=== PATIENT | female | born 1990 | race Caucasian/White ===

== ENCOUNTER 2016-05-25 01:41 | Emergency (ER) | payer OTHER ==
[2016-05-25] MEDS ORDERED: ORPHENADRINE 30 MG/ML 2 ML VIAL IM STA (02:19)
[2016-05-25] MEDS ORDERED: KETOROLAC 60 MG/2 ML VIAL IM STA (02:20)
[2016-05-25] MEDS ORDERED: methylPREDNISolone SOD SUCCI 125 MG/2 ML VIAL IM ONE (02:20)
--- NOTE | 2016-05-25 03:12 | XR ---
EXAMINATION TYPE: XR lumbar spine 2 or 3V DATE OF EXAM: 05/25/2016 2:49 AM CLINICAL HISTORY: Lower back pain no injury no previous TECHNIQUE: Frontal, lateral images of the lumbar spine are obtained. COMPARISON: None FINDINGS: There is increased lumbar lordosis. The alignment of vertebral bodies and body heights are grossly normal. There is narrowing of disc spa ce between L5 on S1 vertebrae with possible mild degenerative disc disease changes. The overlying sof t tissue appears unremarkable. No definite acute fracture is noted in the lumbar spine. IMPRESSION: 1. No acute fracture in the lumbar spine. 2. Possible mild degenerative disc disease at L5-S1.
--- NOTE | 2016-05-25 03:24 | ED ---
Back Pain HPI - General Chief Complaint: Back Pain/Injury Stated Complaint: Back Pain Time Seen by Provider: 05/25/16 01:44 Source: patient, EMS, RN notes reviewed Limitations: no limitations - History of Present Illness Initial Comments: Patient is a 25 year old female with chief complaint of lower back pain radiating to both legs for approximately 2 days. Patient arrived via EMS. Patient reports that she has had this time of pain before but not this bad. Patient report myrna is positional and worse with flexion. She denies fever, chills, nausea, vomiting, chest pain, shortness fo breath, headache. She denies saddle anesthesia. - Related Data Home Medications Medication Instructions Recorded Confirmed Pnv with Ca,No.72/Iron/FA [Pnv 1 tab PO DAILY 11/03/13 01/15/14 Plus Multivit Tab] Amoxicillin [Amoxicillin] 500 mg PO Q4HR 12/23/13 01/15/14 Loratadine [Loratadine] 10 mg PO DAILY 12/23/13 01/15/14 Previous Rx's Medication Instructions Recorded Acetaminophen-Codeine 300-30mg 1 tab PO Q4H PRN #30 tablet 01/18/14 [Tylenol w/codeine #3] FLUoxetine HCL [PROzac] 20 mg PO DAILY #7 cap 01/18/14 FLUoxetine HCL [PROzac] 40 mg PO DAILY #30 cap 01/18/14 Ibuprofen [Motrin] 600 mg PO Q6HR PRN #30 tab 01/18/14 Cyclobenzaprine [Flexeril] 10 mg PO TID #15 tab 05/25/16 Dexamethasone 0.75 mg PO DAILY #12 tab 05/25/16 Allergies Allergy/AdvReac Type Severity Reaction Status Date / Time No Known Allergies Allergy Verified 01/15/14 12:12 Review of Systems ROS Statement: Those systems with pertinent positive or pertinent negative responses have been documented in the HPI. ROS Other: All systems not noted in ROS Statement are negative. Past Medical History Past Medical History: No Reported History Additional Past Medical History / Comment(s): . alcohol syndrome History of Any Multi-Drug Resistant Organisms: None Reported Past Surgical History: Orthopedic Surgery Additional Past Surgical History / Comment(s): shoulder Past Anesthesia/Blood Transfusion Reactions: No Reported Reaction Past Psychological History: Bipolar, Depression Smoking Status: Former smoker Past Alcohol Use History: None Reported Past Drug Use History: None Reported General Exam - General Exam Comments Initial Comments: Patient is a 25 healthy appearing female. She does not appear to be in any acute distress. Limitations: no limitations General appearance: alert, in no apparent distress Head exam: Present: atraumatic, normocephalic, normal inspection Eye exam: Present: normal appearance, PERRL, EOMI. Absent: scleral icterus, conjunctival injection, periorbital swelling ENT exam: Present: normal exam, mucous membranes moist Neck exam: Present: normal inspection. Absent: tenderness, meningismus, lymphadenopathy Respiratory exam: Present: normal lung sounds bilaterally. Absent: respiratory distress, wheezes, rales, rhonchi, stridor Cardiovascular Exam: Present: regular rate, normal rhythm, normal heart sounds. Absent: systolic murmur, diastolic murmur, rubs, gallop, clicks GI/Abdominal exam: Present: soft, normal bowel sounds. Absent: distended, tenderness, guarding, rebound, rigid Extremities exam: Present: normal inspection, full ROM, normal capillary refill. Absent: tenderness, pedal edema, joint swelling, calf tenderness Back exam: Present: normal inspection, paraspinal tenderness (bilateral lumbar tenderness. ). Absent: full ROM (patient reports limited flexion and extension due to pain. ), CVA tenderness (L), muscle spasm Neurological exam: Present: alert, oriented X3, CN II-XII intact Psychiatric exam: Present: normal affect, normal mood Skin exam: Present: warm, dry, intact, normal color. Absent: rash Course Vital Signs 05/25/16 05/25/16 05/25/16 01:48 02:38 03:58 Temperature 97.0 F L 98.1 F 98 F Pulse Rate 75 82 88 Respiratory 18 20 18 Rate Blood Pressure 120/68 128/72 133/79 O2 Sat by Pulse 98 98 98 Oximetry Medical Decision Making - Medical Decision Making Patient is a 25 year old with bilateral back pain radiating to her legs. she denies any falls or trauma to cause pain. She states that pain is positional and worse with flexion. She denies fevers, chills, or urinary retention. Patient was able to ambulate while in the and had 2 episodes of urination. Patient appears to have disc narrowing of L5-S1 vertebrae. Patient given Norflex, toradol, and solumedrol for pain. Patient will be discharged with steroid and flexeril. Patient reports she feels anxious and is trying to get comfortable to sleep, and patient given 1 po ativan to help with sleep and muscle relaxation. Patient given ortho referral. Patient understands treatment plan and will comply. - Lab Data Lab Results 05/25/16 Range/Units 01:50 Urine HCG, Qual Not Detected (Not Detectd) - Radiology Data Radiology results: report reviewed Mild disc degenerative disease and L5 through S1. No evidence of acute fractures or dislocations. Disposition Clinical Impression: Sciatica Disposition: HOME SELF-CARE Condition: Good Instructions: Acute Low Back Pain (ED), Sciatica (ED) Additional Instructions: Patient started take anti-inflammatory medications as prescribed. Patient started apply warm heat over the back. Follow-up with primary care physician or migration specialist if symptoms continue to persist. Prescriptions: Cyclobenzaprine [Flexeril] 10 mg PO TID #15 tab Dexamethasone 0.75 mg PO DAILY #12 tab Referrals: Kellen Winters MD [Primary Care Provider] - 1-2 days Time of Disposition: 03:22
[2016-05-25] MEDS ORDERED: LORazepam 1 MG TAB PO STA (03:47)
[2016-05-25 04:01] VITALS: BP 133/79; PULSE 88; RESP 18; TEMP 98
== END 2016-05-25 04:01 | disposition home or self-care (01) ==
LOC: EC 01:41
DX: M54.42 Lumbago with sciatica, left side (principal); M54.41 Lumbago with sciatica, right side; M51.37 Other intervertebral disc degeneration, lumbosacral region; Z87.891 Personal history of nicotine dependence; Z79.899 Other long term (current) drug therapy
CPT/HCPCS: 96372 ×4; 99284 ×2; 81025; 72100; J2360; J2930; J1885

== ENCOUNTER 2016-08-11 20:18 | Inpatient (IN) | payer OTHER ==
[2016-08-11] MEDS ORDERED: MORPHINE SULFATE 4 MG/ML SYRINGE IM STA (21:34)
[2016-08-11] MEDS ORDERED: MORPHINE SULFATE 4 MG/ML SYRINGE IVP STA (22:26)
[2016-08-11] MEDS ORDERED: NALOXONE 0.4 MG/ML 1 ML VIAL IV PRN (22:26)
--- NOTE | 2016-08-11 22:31 | ED ---
General Adult HPI - General Chief complaint: Abdominal Pain Stated complaint: Poss Hernia Source: patient Mode of arrival: ambulatory Limitations: no limitations - History of Present Illness Initial comments: 25-year-old female presenting for ventral/umbilical hernia that is nonreducible. She states that she has had the hernia for some months and was first diagnosed with a . She states since then the hernia will pop out and she is able to reduce it herself however today it remains nonreducible and is painful. She states she tried for about 2 hours prior to coming to the ED without success. She's been having some looser stools for the last couple weeks but states she is still having bowel movements and passing flatus. There is no discoloration of the skin overlying the area of hernia. She denies any other associated symptoms. - Related Data Home Medications Medication Instructions Recorded Confirmed Pnv with Ca,No.72/Iron/FA [Pnv 1 tab PO DAILY 11/03/13 01/15/14 Plus Multivit Tab] Amoxicillin [Amoxicillin] 500 mg PO Q4HR 12/23/13 01/15/14 Loratadine [Loratadine] 10 mg PO DAILY 12/23/13 01/15/14 Previous Rx's Medication Instructions Recorded Acetaminophen-Codeine 300-30mg 1 tab PO Q4H PRN #30 tablet 01/18/14 [Tylenol w/codeine #3] FLUoxetine HCL [PROzac] 20 mg PO DAILY #7 cap 01/18/14 FLUoxetine HCL [PROzac] 40 mg PO DAILY #30 cap 01/18/14 Ibuprofen [Motrin] 600 mg PO Q6HR PRN #30 tab 01/18/14 Cyclobenzaprine [Flexeril] 10 mg PO TID #15 tab 05/25/16 Dexamethasone 0.75 mg PO DAILY #12 tab 05/25/16 Allergies Allergy/AdvReac Type Severity Reaction Status Date / Time No Known Allergies Allergy Verified 08/11/16 20:33 Review of Systems ROS Statement: Those systems with pertinent positive or pertinent negative responses have been documented in the HPI. ROS Other: All systems not noted in ROS Statement are negative. Constitutional: Denies: fever, chills Eyes: Denies: eye pain, eye discharge ENT: Denies: ear pain, throat pain Respiratory: Denies: cough, dyspnea Cardiovascular: Denies: chest pain, palpitations Endocrine: Denies: fatigue, polydipsia Gastrointestinal: Reports: abdominal pain, nausea. Denies: vomiting Genitourinary: Denies: urgency, dysuria Musculoskeletal: Denies: back pain, arthralgia Skin: Denies: rash, lesions Neurological: Denies: headache, weakness Psychiatric: Denies: anxiety, depression Hematological/Lymphatic: Denies: easy bleeding, easy bruising Past Medical History Past Medical History: No Reported History Additional Past Medical History / Comment(s): . alcohol syndrome History of Any Multi-Drug Resistant Organisms: None Reported Past Surgical History: Orthopedic Surgery Additional Past Surgical History / Comment(s): shoulder Past Anesthesia/Blood Transfusion Reactions: No Reported Reaction Past Psychological History: Bipolar, Depression Smoking Status: Former smoker Past Alcohol Use History: None Reported Past Drug Use History: None Reported General Exam Limitations: no limitations General appearance: alert, in no apparent distress Head exam: Present: atraumatic, normocephalic, normal inspection Eye exam: Present: normal appearance, PERRL, EOMI. Absent: scleral icterus, conjunctival injection, periorbital swelling ENT exam: Present: normal exam, mucous membranes moist Neck exam: Present: normal inspection. Absent: tenderness, meningismus, lymphadenopathy Respiratory exam: Present: normal lung sounds bilaterally. Absent: respiratory distress, wheezes, rales, rhonchi, stridor Cardiovascular Exam: Present: regular rate, normal rhythm, normal heart sounds. Absent: systolic murmur, diastolic murmur, rubs, gallop, clicks GI/Abdominal exam: Present: soft, tenderness, normal bowel sounds, hernia ( Round and firm ventral/umbilical hernia, nonreducible, and tender to palpation.) . Absent: distended, guarding, rebound, rigid Rectal exam: Present: deferred Extremities exam: Present: normal inspection, full ROM, normal capillary refill. Absent: tenderness, pedal edema, joint swelling, calf tenderness Back exam: Present: normal inspection Neurological exam: Present: alert, oriented X3, CN II-XII intact Psychiatric exam: Present: normal affect, normal mood Skin exam: Present: warm, dry, intact, normal color. Absent: rash Course Vital Signs 08/11/16 08/11/16 20:31 23:14 Temperature 99.2 F 97.4 F L Pulse Rate 90 Pulse Rate [ 84 Apical] Respiratory 20 12 Rate Blood Pressure 128/77 Blood Pressure 112/82 [Left Arm] O2 Sat by Pulse 98 96 Oximetry Medical Decision Making - Medical Decision Making 25-year-old female with a history of ventral/umbilical hernia that started months ago presenting for evaluation of nonreducible hernia. She states she attempted to reduce it for the last 2 hours and has been unsuccessful. Upon presentation the hernia is visible from the bedside without any overlying erythema or discoloration. Multiple attempts at the bedside made to reduce the hernia were unsuccessful. Patient was placed in Trendelenburg and given pain control and yet the hernia was still unable to be reduced. Dr. Bourgeois was updated on the status of the patient and agreed with plan to admit and requested the pt be made NPO for possible intervention in the morning. Labs revealed no significant abnormalities and acute abdominal series showed nonspecific, nonobstructing bowel gas pattern. The patient was informed of this decision to admit and agreed with this plan of care. Pain was controlled. Admission order placed in bed request submitted. - Lab Data Result diagrams: 08/11/16 22:40 08/11/16 22:40 Disposition Clinical Impression: Ventral hernia Disposition: ADMITTED IP TO THIS [facility] Decision to Admit Reason: Admit from EC Decision Date: 08/11/16 Decision Time: 22:31
[2016-08-11] MEDS: SODIUM CHLORIDE 0.9% 1,000 ML IV SCH (22:45)
[2016-08-11 22:55] LABS: Basophils % (A) 0 %; CH 29.3; CHCM 33.7; Eosinophils # (A) 0.3 k/uL (0-0.7); Eosinophils % (A) 3 %; HCT 43.4 % (34.0-46.0); HDW 3.03; HGB 14.6 gm/dL (11.4-16.0); Luc # (Auto) 0.17; Luc % (Auto) 2; Lymphocytes # (A) 2.1 k/uL (1.0-4.8); Lymphocytes % (A) 19 %; MCH 29.3 pg (25.0-35.0); MCHC 33.6 g/dL (31.0-37.0); MCV 87.3 fL (80.0-100.0); Mean Platelet Volume 6.4; Monocytes # (A) 0.4 k/uL (0-1.0); Monocytes % (A) 4 %; Neutrophils # (A) 7.7 k/uL (1.3-7.7); Neutrophils % (A) 72 %; RBC 4.97 m/uL (3.80-5.40); RDW 14.7 % (11.5-15.5); WBC 10.7 k/uL (3.8-10.6); WBC (Perox) 10.54
--- NOTE | 2016-08-11 23:00 | XR ---
EXAMINATION TYPE: XR abdomen acute w cxr DATE OF EXAM: 08/11/2016 10:52 PM CLINICAL HISTORY: Umbilical hernia per patient. Pain not further specified per order. TECHNIQUE: Single frontal view of chest is obtained. Supine and upright views of the abdomen are acq uired. COMPARISON: None. FINDINGS: The lungs are grossly clear without pleural effusion or pneumothorax. Cardiac silhouette size appears within normal limits. Osseous structures are intact. Gas is noted in nondistended stomach and small bowel loops. Gas and fecal material is seen in nondis tended colon. No pneumoperitoneum, visceromegaly, or suspicious calcification is identified. The o sseous structures are intact. IMPRESSION: 1. No acute pulmonary process. 2. Overall nonspecific but likely nonobstructive bowel gas pattern.
[2016-08-11 23:02] LABS: Anion Gap 10 mmol/L; Blood Urea Nitrogen 14 mg/dL (7-17); Calcium 9.3 mg/dL (8.4-10.2); Carbon Dioxide 26 mmol/L (22-30); Chloride 105 mmol/L (98-107); Glucose 84 mg/dL (74-99); HCG,Qualitative Serum Not Detected; Non-African American GFR(MDRD) >60 (>60 ml/min/1.73 sqM); Potassium 4.4 mmol/L (3.5-5.1); Sodium 141 mmol/L (137-145)
[2016-08-11 23:07] LABS: Partial Thromboplastin Time 23.5 sec (22.0-30.0)
[2016-08-11 23:53] VITALS: BMI 29.5
[2016-08-12] MEDS: MORPHINE SULFATE 4 MG/ML SYRINGE IV PRN ×3 (02:11→11:24)
[2016-08-12] MEDS: SODIUM CHLORIDE 0.9% 1,000 ML IV SCH ×2 (07:14→18:18)
[2016-08-12 07:26] LABS: Basophils % (A) 1 %; CH 29.5; Eosinophils # (A) 0.3 k/uL (0-0.7); Eosinophils % (A) 3 %; HDW 3.02; HGB 14.3 gm/dL (11.4-16.0); Luc % (Auto) 1; Lymphocytes # (A) 1.9 k/uL (1.0-4.8); Lymphocytes % (A) 25 %; MCH 28.6 pg (25.0-35.0); MCHC 31.8 g/dL (31.0-37.0); Mean Platelet Volume 6.4; Monocytes # (A) 0.4 k/uL (0-1.0); Monocytes % (A) 5 %; Neutrophils # (A) 5.1 k/uL (1.3-7.7); Neutrophils % (A) 66 %; RDW 14.9 % (11.5-15.5); WBC 7.8 k/uL (3.8-10.6); WBC (Perox) 7.87
[2016-08-12 07:46] LABS: Anion Gap 8 mmol/L; Blood Urea Nitrogen 11 mg/dL (7-17); Calcium 8.7 mg/dL (8.4-10.2); Carbon Dioxide 26 mmol/L (22-30); Chloride 108 mmol/L (98-107); Glucose 79 mg/dL (74-99); Non-African American GFR(MDRD) >60 (>60 ml/min/1.73 sqM); Potassium 4.5 mmol/L (3.5-5.1); Sodium 142 mmol/L (137-145)
[2016-08-12] MEDS ORDERED: HEPARIN SODIUM,PORCINE 5,000 UNIT/ML 1 ML VIAL SQ ONE (10:20)
--- NOTE | 2016-08-12 10:29 | P.GSHP ---
History of Present Illness H&P Date: 08/12/16 Chief Complaint: Incarcerated umbilical hernia 25 yrs old female presents with painful and irreducible hernia at the umbilicus. Known umbilical hernia since 2 years ago. Patient noticed that hernia is no longer reducible and is now having more pain and discomfort. No nausea or vomiting. She is passing flatus but no bowel movements. No fever, chills or rigors - Review of Systems Comment: Constitutional: Denies fever, weight loss or loss of appetite HEENT: No difficulty in vision or hearing. Denies dysphagia. Cardiovascular: Denies chest pain, palpitations, dizziness, shortness of breath. Respiratory: No cough or SOB Gastrointestinal: No recent change in bowel habits Integumentary: No skin changes Genitourinary: No urinary incontinence, hematuria or dysuria Neurologic: No seizures, denies weakness in upper or lower extremities Past Medical History Past Medical History: No Reported History Additional Past Medical History / Comment(s): . alcohol syndrome History of Any Multi-Drug Resistant Organisms: None Reported Past Surgical History: Orthopedic Surgery Additional Past Surgical History / Comment(s): shoulder Past Anesthesia/Blood Transfusion Reactions: No Reported Reaction Past Psychological History: Bipolar, Depression Smoking Status: Former smoker Past Alcohol Use History: None Reported Past Drug Use History: None Reported Medications and Allergies Home Medications Medication Instructions Recorded Confirmed Type Pnv with Ca,No.72/Iron/FA [Pnv 1 tab PO DAILY 11/03/13 01/15/14 History Plus Multivit Tab] Amoxicillin [Amoxicillin] 500 mg PO Q4HR 12/23/13 01/15/14 History Loratadine [Loratadine] 10 mg PO DAILY 12/23/13 01/15/14 History Allergies Allergy/AdvReac Type Severity Reaction Status Date / Time No Known Allergies Allergy Verified 08/11/16 20:33 Surgical - Exam Vital Signs Temp Pulse Resp BP Pulse Ox 99.2 F 90 20 128/77 98 08/11/16 20:31 08/11/16 20:31 08/11/16 20:31 08/11/16 20:31 08/11/16 20:31 General: Patient is alert and oriented to time, place and person and cooperative with exam. HEENT: No pallor, no icterus Chest: Bilateral equal breath sounds present. No wheezes, no crackles. Cardiovascular: Regular rate and rhythm. Abdomen: 5 x 5 cm umbilical hernia, incarcerated, irreducible with some overlying skin redness Neurologic: Cranial nerves II-XII intact. Strength upper and lower extremities 5/5. No focal neurologic deficits. Gait is normal. Psychiatric: No anxiety or psychosis. No suicidal thoughts. Results - Labs 08/12/16 06:09 08/12/16 06:09 Abnormal Lab Results - Last 24 Hours (Table) 08/11/16 08/12/16 Range/Units 22:40 06:09 WBC 10.7 H (3.8-10.6) k/uL Chloride 108 H (98-107) mmol/L Diabetes panel 08/11/16 08/12/16 Range/Units 22:40 06:09 Sodium 141 142 (137-145) mmol/L Potassium 4.4 4.5 (3.5-5.1) mmol/L Chloride 105 108 H (98-107) mmol/L Carbon Dioxide 26 26 (22-30) mmol/L BUN 14 11 (7-17) mg/dL Creatinine 0.80 0.83 (0.52-1.04) mg/dL Glucose 84 79 (74-99) mg/dL Calcium 9.3 8.7 (8.4-10.2) mg/dL Calcium panel 08/11/16 08/12/16 Range/Units 22:40 06:09 Calcium 9.3 8.7 (8.4-10.2) mg/dL Pituitary panel 08/11/16 08/12/16 Range/Units 22:40 06:09 Sodium 141 142 (137-145) mmol/L Potassium 4.4 4.5 (3.5-5.1) mmol/L Chloride 105 108 H (98-107) mmol/L Carbon Dioxide 26 26 (22-30) mmol/L BUN 14 11 (7-17) mg/dL Creatinine 0.80 0.83 (0.52-1.04) mg/dL Glucose 84 79 (74-99) mg/dL Calcium 9.3 8.7 (8.4-10.2) mg/dL Adrenal panel 08/11/16 08/12/16 Range/Units 22:40 06:09 Sodium 141 142 (137-145) mmol/L Potassium 4.4 4.5 (3.5-5.1) mmol/L Chloride 105 108 H (98-107) mmol/L Carbon Dioxide 26 26 (22-30) mmol/L BUN 14 11 (7-17) mg/dL Creatinine 0.80 0.83 (0.52-1.04) mg/dL Glucose 84 79 (74-99) mg/dL Calcium 9.3 8.7 (8.4-10.2) mg/dL Assessment and Plan (1) Incarcerated umbilical hernia Status: Acute Plan: 1. Informed consent obtained and patient elected to undergo laparoscopic umbilical hernia repair with possible mesh possible open. In case of necrotic bowel or omentum, small bowel resection will also be performed with primary anastomosis and primary hernia repair without mesh. 2. The risks, benefits and potential complications including bleeding, infection, inadvertent bowel injury were explained and patient elected to undergo the procedure 3. Ancef 2 g IV piggyback times one 4. Heparin 5000 units subcu tissues injection 1 6. Bilateral SCDs
[2016-08-12] MEDS ORDERED: ONDANSETRON 4 MG/2 ML VIAL IVP PRN ×2 (10:30→15:23)
[2016-08-12] MEDS ORDERED: ceFAZolin 2 GM in SODIUM CHLORIDE 0.9% 100 ML IVPB ONE (11:00)
[2016-08-12] MEDS ORDERED: IV FLUID CONTINUATION 1,000 ML IV ONE ×3 (12:39→13:25)
[2016-08-12] MEDS ORDERED: ONDANSETRON 4 MG/2 ML VIAL IVP ONE ×2 (12:51)
[2016-08-12] MEDS ORDERED: MIDAZOLAM 2 MG/2 ML VIAL ONE (13:29)
[2016-08-12] MEDS ORDERED: SUCCINYLCHOLINE CHLORIDE 100 MG/5 ML SYR IV ONE (13:29)
[2016-08-12] MEDS ORDERED: HYDROmorphone (PF) 1 MG/ML ONE (13:29)
[2016-08-12] MEDS ORDERED: ceFAZolin 1,000 MG VIAL ONE (13:29)
[2016-08-12] MEDS ORDERED: GLYCOPYRROLATE 0.2 MG/ML 2 ML VIAL ONE (13:29)
[2016-08-12] MEDS ORDERED: PROPOFOL 10 MG/ML 20 ML VIAL IV ONE (13:29)
[2016-08-12] MEDS ORDERED: NEOSTIGMINE 1 MG/ML 10 ML VIAL ONE (13:29)
[2016-08-12] MEDS ORDERED: fentaNYL (PF) 50 MCG/ML 2 ML AMP ONE (13:29)
[2016-08-12] MEDS ORDERED: LIDOCAINE 1% INJ 10MG/ML (20 ML MDV) ONE (13:29)
[2016-08-12] MEDS ORDERED: ROCURONIUM BROMIDE 10 MG/ML 10 ML VIAL IV ONE (13:29)
[2016-08-12] MEDS ORDERED: DEXAMETHASONE SOD PHOS (MDV) 100 MG/10 ML VIAL ONE (13:29)
[2016-08-12] MEDS ORDERED: SODIUM CHLORIDE 0.9% 100 ML with ceFAZolin 2,000 MG IV ONE ×2 (13:43)
[2016-08-12] MEDS ORDERED: BUPIVACAIN-EPI 0.25%-1:200,000 30 ML VIAL SQ ONE ×2 (13:49)
[2016-08-12] MEDS ORDERED: LACTATED RINGERS 1,000 ML IV ONE (15:15)
[2016-08-12] MEDS: HYDROmorphone 1 MG/ML 1 ML SYRINGE IVP ONE ×2 (15:31→15:44)
[2016-08-12] MEDS: HEPARIN SODIUM,PORCINE 5,000 UNIT/ML 1 ML VIAL SQ SCH ×2 (17:22→23:49)
[2016-08-12] MEDS: HYDROmorphone 1 MG/ML 1 ML SYRINGE IVP PRN (18:16)
[2016-08-13] MEDS: HYDROmorphone 1 MG/ML 1 ML SYRINGE IVP PRN (00:11)
[2016-08-13 01:25] VITALS: RESP 16
[2016-08-13] MEDS: SODIUM CHLORIDE 0.9% 1,000 ML IV SCH ×2 (07:36→08:28)
[2016-08-13] MEDS: HEPARIN SODIUM,PORCINE 5,000 UNIT/ML 1 ML VIAL SQ SCH (07:37)
[2016-08-13 08:26] VITALS: BP 120/78; PULSE 66; TEMP 99.3
[2016-08-13] MEDS ORDERED: PANTOPRAZOLE 40 MG/10 ML VIAL IV SCH (09:00)
[2016-08-13] MEDS ORDERED: PANTOPRAZOLE 40 MG/10 ML VIAL IVP SCH (09:00)
[2016-08-13] MEDS: HYDROcodone/APAP 5-325MG 1 EACH TAB PO PRN ×2 (10:24→14:28)
--- NOTE | 2016-08-13 14:21 | P.DS ---
Providers Date of admission: 08/11/16 22:26 Expected date of discharge: 08/13/16 Attending physician: Radha Che Primary care physician: Vianey Foreman [facility] Course: 5 yrs old female presents with painful and irreducible hernia at the umbilicus. Known umbilical hernia since 2 years ago. Patient noticed that hernia is no longer reducible and is now having more pain and discomfort. No nausea or vomiting. She is passing flatus but no bowel movements. No fever, chills or rigors. Patient elected to proceed with a upper scopic umbilical hernia repair for incarcerated umbilical hernia. Postprocedure there were no postop events. Patient was felt to be appropriate to be discharged on August 13 - Impression discharge diagnosis Present on admission Incarcerated umbilical hernia Postop laparoscopic umbilical hernia repair done on the 13 August Known umbilical hernia Present on admission pain a reducible hernia at the umbilicus suspect due to incarcerated umbilical hernia Obesity BMI 30 The above dictated assessment and findings were discussed with dr yane Paz and the plan of care have been dictated as directed. Flor Rios nurse practitioner acting as a scribe for dr che Plan - Discharge Summary New Discharge Prescriptions: Docusate [Colace] 100 mg PO DAILY #30 capsule HYDROcodone/APAP 5-325MG [Vaughn 5-325] 1 each PO Q4HR PRN #20 tab PRN Reason: Pain Discharge Medication List Levonorgestrel-Ethin Estradiol [Falmina-28 Tablet] 1 tab PO DAILY 08/12/16 [ History] Docusate [Colace] 100 mg PO DAILY #30 capsule 08/13/16 [Rx] HYDROcodone/APAP 5-325MG [Vaughn 5-325] 1 each PO Q4HR PRN #20 tab 08/13/16 [Rx] Follow up Appointment(s)/Referral(s): Kellen Winters MD [Primary Care Provider] - 1-2 days Radha Che MD [STAFF PHYSICIAN] - 1 Week Activity/Diet/Wound Care/Special Instructions: No heavy lifting greater than 10 pounds May return to work after seen by surgical service in one week [id number] Colace as needed Discharge Disposition: HOME SELF-CARE
--- NOTE | 2016-09-10 18:35 | P.OP ---
Date of Procedure: 08/12/16 Preoperative Diagnosis: Incarcerated umbilical hernia Postoperative Diagnosis: Incarcerated umbilical hernia Procedure(s) Performed: Laparoscopic umbilical henia repair with mesh Implants: BARD Ventralight ST mesh Anesthesia: THU local Surgeon: Radha Bourgeois Pathology: none sent Condition: stable Disposition: PACU Indications for Procedure: 25 yrs old female presents with painful incarcerated umbilical hernia. Informed consent obtained and patient elected to undergo lap possible open umbilical hernia repair with mesh. Operative Findings: Incarcerated umbilical hernia containing omentum Description of Procedure: The patient was brought to the operating room and placed in supine position with both arms out. General anesthesia with endotracheal intubation was performed as per anesthesia team. The right arm was tucked against the body and a footboard was applied. Chlorhexidine was used to prep the skin followed by application of sterile drapes and Ioban dressing. A timeout was performed to verify correct patient and correct procedure. Patient was confirmed to receive perioperative IV antibiotics , bilateral SCDs and 5000 units of subcutaneous heparin for VTE prophylaxis. A 5 mm skin incision was made along the left midaxillary line and a Veress needle was inserted to establish the pneumoperitoneum to a pressure of 15 mm of Hg. Two additional 5 mm trocars were placed on the left mid and lower quadrants respectively. A 10 mm trocar was placed in the right upper quadrant. The hernia defect contained preperitoneal fat and omentum which were reduced using gentle traction and countertraction method. The hernia sac and is contents were reduced and divided using laparoscopic Ligasure device. The falciform ligament was divided close to the anterior abdominal wall to create a landing zone for the mesh. At 11.[address] mesh was tagged in the center using a prolene stitich and was rolled and introduced to the abdominal cavity via the 10 mm trocar. The hernia defect was closed primarily with four transfascial sutures of #1 Neurolon using a Van Joyce device. The Van Joyce device was inserted through the middle of the hernia defect and stay suture was grasped to elevate the mesh against the anterior abdominal wall. Circumferential securestraps were applied to secure the mesh against the anterior abdominal wall. Additional row of secure straps were fired to appose the mesh against the anterior abdominal wall without any folds or kinks. All trocar sites were examined. No evidence of bleeding. The 10 mm trocar site was closed using two transfascial sutures of 0 Vicryl which were placed using a Van Joyce device. The pneumoperitoneum was evacuated and all the skin incisions were closed using 4-0 Monocryl followed by Dermabond skin glue. Telfa and Tegaderm dressings were applied. The sponge, instrument and needle count were correct x2. Abdominal binder was applied. The patient was extubated and taken to post anesthesia care unit in stable condition.
== END 2016-08-13 15:43 | disposition home or self-care (01) | DRG 355 ==
LOC: EC 20:18 → 3SUR 22:26
PROVIDERS: ADMIT Surgery; ATTEND Surgery
PROC: 0WUF4JZ Supplement Abdominal Wall with Synthetic Substitute, Percutaneous Endoscopic Approach (ICD-10-PCS; principal; 2016-08-12 13:00)
DX: K42.0 Umbilical hernia with obstruction, without gangrene (principal); F32.9 Major depressive disorder, single episode, unspecified; E66.9 Obesity, unspecified; Z68.30 Body mass index [BMI] 30.0-30.9, adult; Z87.891 Personal history of nicotine dependence; Z79.899 Other long term (current) drug therapy
CPT/HCPCS: 74022; 80048; 83605; 84703; 85025; 85610; 85730; 96372; 96374; 99285

== ENCOUNTER 2017-05-21 00:47 | Emergency (ER) | payer OTHER ==
[2017-05-21 00:54] VITALS: BP 112/71; PULSE 73; RESP 16; TEMP 96.9
--- NOTE | 2017-05-21 01:11 | ED ---
Back Pain HPI - General Chief Complaint: Back Pain/Injury Stated Complaint: Back Pain Time Seen by Provider: 05/21/17 00:57 Source: patient, RN notes reviewed Mode of arrival: ambulatory Limitations: no limitations - History of Present Illness Initial Comments: This is a 26 year-old female presents emergency Department chief complaint of back pain. Patient states she fell down her stairs a couple days ago onto her back. Patient states there is no head injury no LOC. She states she's been having some worsening low back pain. She does have a history of some low back issues in which she's been told she has degenerative disc between L5 and S1. Patient denies any bowel incontinence or bladder retention denies any abdominal pain no dysuria no hematuria states that she is not sexually active no chance . Patient denies any dysuria no hematuria no change in bowel habits. She does state the pain is worse with movement and better at rest had no alleviation with ibuprofen. - Related Data Home Medications Medication Instructions Recorded Confirmed Levonorgestrel-Ethin Estradiol 1 tab PO DAILY 08/12/16 08/12/16 [Falmina-28 Tablet] Previous Rx's Medication Instructions Recorded Docusate [Colace] 100 mg PO DAILY #30 capsule 08/13/16 HYDROcodone/APAP 5-325MG [[place] 1 each PO Q4HR PRN #20 tab 08/13/16 5-325] Cyclobenzaprine [Flexeril] 5 mg PO TID PRN #15 tablet 05/21/17 Hydrocodone/Acetaminophen [[place] 1 tab PO Q6HR PRN #20 tab 05/21/17 5-325] predniSONE 50 mg PO DAILY #5 tab 05/21/17 Allergies Allergy/AdvReac Type Severity Reaction Status Date / Time No Known Allergies Allergy Verified 08/12/16 11:45 Review of Systems ROS Statement: Those systems with pertinent positive or pertinent negative responses have been documented in the HPI. ROS Other: All systems not noted in ROS Statement are negative. Past Medical History Past Medical History: No Reported History Additional Past Medical History / Comment(s): alcohol syndrome History of Any Multi-Drug Resistant Organisms: None Reported Past Surgical History: Orthopedic Surgery Additional Past Surgical History / Comment(s): shoulder,hernia repair 08/2016 Past Anesthesia/Blood Transfusion Reactions: No Reported Reaction Past Psychological History: Anxiety, Bipolar, Depression Smoking Status: Current every day smoker Past Alcohol Use History: None Reported Past Drug Use History: None Reported General Exam Limitations: no limitations General appearance: alert, in no apparent distress Head exam: Present: atraumatic, normocephalic, normal inspection Neck exam: Present: normal inspection. Absent: tenderness, meningismus, lymphadenopathy Respiratory exam: Present: normal lung sounds bilaterally. Absent: respiratory distress, wheezes, rales, rhonchi, stridor Cardiovascular Exam: Present: regular rate, normal rhythm, normal heart sounds. Absent: systolic murmur, diastolic murmur, rubs, gallop, clicks GI/Abdominal exam: Present: soft, normal bowel sounds. Absent: distended, tenderness, guarding, rebound, rigid Back exam: Present: normal inspection, full ROM, tenderness (Mild tenderness lower lumbar region), paraspinal tenderness, vertebral tenderness (L4-L5) Neurological exam: Present: alert, oriented X3, CN II-XII intact, reflexes normal. Absent: motor sensory deficit Skin exam: Present: warm, dry, intact, normal color. Absent: rash Course Vital Signs 05/21/17 00:49 Temperature 96.9 F L Pulse Rate 73 Respiratory 16 Rate Blood Pressure 112/71 O2 Sat by Pulse 98 Oximetry - Reevaluation(s) Reevaluation #1: 05/21/17 01:11 Patient states that she is not declined test Medical Decision Making - Medical Decision Making 26-year-old female presented from for fall back pain. Patient x-rays reviewed no acute fracture. Patient will be given pain medication muscle relaxer and steroids. Patient called PCP for recheck return parameters were discussed. Disposition Clinical Impression: Lumbar back pain, Fall Disposition: HOME SELF-CARE Condition: Stable Instructions: Acute Low Back Pain (ED) Additional Instructions: Please return to the Emergency Department if symptoms worsen or any other concerns. Prescriptions: Cyclobenzaprine [Flexeril] 5 mg PO TID PRN #15 tablet PRN Reason: Muscle Spasm Hydrocodone/Acetaminophen [[place] 5-325] 1 tab PO Q6HR PRN #20 tab PRN Reason: Pain predniSONE 50 mg PO DAILY #5 tab Referrals: Kellen Winters MD [Primary Care Provider] - 1-2 days Time of Disposition: :28
--- NOTE | 2017-05-21 01:24 | XR ---
EXAMINATION TYPE: XR lumbar spine 2 or 3V DATE OF EXAM: 05/21/2017 COMPARISON: NONE HISTORY: Back pain TECHNIQUE: 3 views FINDINGS: Lumbar vertebra have normal spacing and alignment. Posterior elements are intact. Sacroilia c joints appear normal. IMPRESSION: Normal lumbar spine. No fracture.
[2017-05-21] MEDS ORDERED: CYCLOBENZAPRINE 10 MG TAB PO STA (01:26)
[2017-05-21] MEDS ORDERED: HYDROcodone/APAP 5-325MG 1 EACH TAB PO STA (01:26)
== END 2017-05-21 01:38 | disposition home or self-care (01) ==
LOC: EC 00:47
DX: M54.5 Low back pain (principal); M51.37 Other intervertebral disc degeneration, lumbosacral region; F17.200 Nicotine dependence, unspecified, uncomplicated; Z79.3 Long term (current) use of hormonal contraceptives; W10.9XXA Fall (on) (from) unspecified stairs and steps, initial encounter
CPT/HCPCS: 72100; 99283

== ENCOUNTER → 2019-07-01 | Outpatient (CLI) | payer OTHER ==
[2019-07-01 20:50] LABS: Hepatitis A Antibody IgM Non-Reactive (Non-Reactive); Hepatitis B Core IgM Non-Reactive (Non-Reactive); Hepatitis B Surface Antigen Non-Reactive (Non-Reactive); Hepatitis C IgG Antibody Non-Reactive (Non-Reactive)
[2019-07-01 20:55] LABS: HIV 1 AB Non-Reactive (Non-Reactive); HIV 2 AB Non-Reactive (Non-Reactive); HIV AB P24 Non-Reactive (Non-Reactive); HIV P24 AG Non-Reactive (Non-Reactive)
[2019-07-03 03:09] LABS: Herpes simplex I and/or II IgM 0.32 INDEX (<=0.90); Herpes simplex IgG I Ab 27.4 (< or = 0.90); Herpes simplex IgG II Ab 0.1 (< or = 0.90)
== END | disposition home or self-care (01) ==
LOC: LABWHC1 13:11
PROVIDERS: ATTEND Obstetrics & Gynecology
DX: Z11.3 Encounter for screening for infections with a predominantly sexual mode of transmission (principal); Z20.2 Contact with and (suspected) exposure to infections with a predominantly sexual mode of transmission
CPT/HCPCS: 36415; 80074; 86694; 86695; 86696; 86780; 87390

== ENCOUNTER 2019-10-15 20:38 | Outpatient (CLI) | payer OTHER ==
[2019-10-15 21:46] LABS: Glucose,Whole Blood 94 mg/dL (75-99)
[2019-10-15] MEDS ORDERED: LACTATED RINGERS 1,000 ML IV SCH (22:00)
[2019-10-15 22:16] LABS: Basophils % (A) 0 %; Eosinophils # (A) 0.2 k/uL (0-0.7); Eosinophils % (A) 2 %; HCT 33.4 % (34.0-46.0); HGB 10.8 gm/dL (11.4-16.0); Hypochromasia Slight; Lymphocytes # (A) 1.5 k/uL (1.0-4.8); Lymphocytes % (A) 12 %; MCH 26.8 pg (25.0-35.0); MCHC 32.2 g/dL (31.0-37.0); MCV 83.4 fL (80.0-100.0); Mean Platelet Volume 7.1; Monocytes # (A) 0.6 k/uL (0-1.0); Monocytes % (A) 5 %; Neutrophils # (A) 10.1 k/uL (1.3-7.7); Neutrophils % (A) 80 %; Platelet Count 271 k/uL (150-450); RBC 4.01 m/uL (3.80-5.40); RDW 15.8 % (11.5-15.5); WBC 12.6 k/uL (3.8-10.6)
[2019-10-15 22:25] LABS: Appearance,Urine Cloudy (Clear); Bilirubin,Urine Negative (Negative); Blood,Urine Negative (Negative); Calcium Oxalate Crystals,Urine Moderate /hpf; Color,Urine Yellow; Glucose,Urine (UA) Negative (Negative); Ketones,Urine Trace (Negative); Leukocyte Esterase,Urine Negative (Negative); Mucus,Urine Rare /hpf; Nitrite,Urine Negative (Negative); PH, Urine 6.5 (5.0-8.0); Protein,Urine 1+ (Negative); RBC,Urine 1 /hpf (0-5); Specific Gravity,Urine 1.025 (1.001-1.035); Squamous Epithelial Cell,Urine 5 /hpf (0-4); Urobilinogen,Urine <2.0 mg/dL (<2.0); WBC,Urine 3 /hpf (0-5)
[2019-10-15 23:22] VITALS: BP 122/71; PULSE 93; RESP 16; TEMP 98.3
--- NOTE | 2019-10-16 10:23 | P.MSEPDOC ---
Presenting Problems - Arrival Data Date of Arrival on Unit: 10/15/19 Time of Arrival on Unit: 20:38 Mode of Transport: Ambulatory - Complaint OB-Reason for Admission/Chief Complaint: Vaginal Bleeding Medical History - Information : 2 Para: 1 Term: 1 : 0 Abortions: Spontaneous or Elective: 0 Number of Living Children: 1 - Gestational Age Gestational Age by SRI (wks/days): 33 Weeks and 4 Days - History Complications: GDM, Smoker Review of Systems - Review of Systems Constitutional: No problems Breast: No problems ENT: No problems Cardiovascular: No problems Respiratory: No problems Gastrointestinal: No problems Genitourinary: No problems Musculoskeletal: No problems Neurological: No problems Skin: No problems Vital Signs - Temperature Temperature: 98.3 F Temperature Source: Oral - Pulse Right Sitting Pulse Rate: 93 Pulse Assessment Method: Automatic Cuff - Respirations Respiratory Rate: 16 Oxygen Delivery Method: Room Air - Blood Pressure Right Arm Blood Pressure: 122/71 Blood Pressure Mean: 88 Blood Pressure Source: Automatic Cuff Medical Screen Scoring (Pre) - Cervical Exam Dilation: 1-3 cm = 1 Membranes: Intact - Uterine Contractions Frequency: < 36 weeks = 6 Duration: > 40 seconds = 2 Intensity: N/A - Maternal Vital Signs Maternal Temperature: N/A Maternal Blood Pressure: N/A Signs of Preeclampsia: N/A Maternal Respirations: N/A - Maternal Trauma Maternal Trauma: N/A - Assessment - Baby A Baseline FHR: 135 Heart Rate - NICHD Category: Category I (Normal) = 0 NST: Reactive Position: N/A Station: N/A - Total Score - Baby A Total Score - Baby A: 9 - Total Score - Baby B Total Score - Baby B: 9 - Total Score - Baby C Total Score - Baby C: 9 - Level of Risk - Baby A Level of Risk - Baby A: Medium (6-9) - Level of Risk - Baby B Level of Risk - Baby B: Medium (6-9) - Level of Risk - Baby C Level of Risk - Baby C: Medium (6-9) Physician Notification (Pre) - Physician Notified Physician Notified Date: 10/15/19 Physician Notified Time: 21:24 New Order Received: Yes - Notification Comment Comment: Dr. muñoz to come in and evaluate pt. Pt has appt tomorrow with dr. cameron Disposition - Disposition OB Disposition: Discharge to home Discharge Date: 10/15/19 Discharge Time: 23:05 I agree with the RN Medical Screening Exam: Yes Risk & Benefit of care provided described in d/c instruction: Yes Diagnosis: FALSE LABOR BEFORE 37 COMPLETED WEEKS OF GEST, THIRD TRI (Patient pr esented with complaints of bleeding while on the commode. Speculum exam shows no bleeding. Patient was concerned may be hemorrhoidal and I agree. Cervix is not worrisome and heart tones are reactive. Plan is to pro long monitor for 1 hour and then discharged home if things remain stable.)
== END 2019-10-15 23:05 | disposition home or self-care (01) ==
LOC: FBPOP 20:38
PROVIDERS: ATTEND Obstetrics & Gynecology
DX: O47.03 False labor before 37 completed weeks of gestation, third trimester (principal); Z3A.33 33 weeks gestation of pregnancy
CPT/HCPCS: 59025; 96360; 96361; 85025; 81001; G0463; 84112; 99214

== ENCOUNTER 2019-11-18 12:13 | Inpatient (IN) | payer OTHER ==
[2019-11-18 13:12] LABS: Appearance,Urine Cloudy (Clear); Bilirubin,Urine Negative (Negative); Blood,Urine Negative (Negative); Color,Urine Yellow; Glucose,Urine (UA) Negative (Negative); Ketones,Urine Trace (Negative); Leukocyte Esterase,Urine Small (Negative); Mucus,Urine Occasional /hpf; Nitrite,Urine Negative (Negative); PH, Urine 6.5 (5.0-8.0); Protein,Urine 2+ (Negative); RBC,Urine 2 /hpf (0-5); Specific Gravity,Urine 1.027 (1.001-1.035); Squamous Epithelial Cell,Urine 13 /hpf (0-4); WBC,Urine 9 /hpf (0-5)
[2019-11-18 13:21] LABS: Protein/Creatinine Ratio,Urine 0.879
[2019-11-18 13:28] LABS: Anisocytosis Slight; Basophils % (A) 0 %; Eosinophils # (A) 0.2 k/uL (0-0.7); Eosinophils % (A) 2 %; HCT 34.2 % (34.0-46.0); HGB 10.8 gm/dL (11.4-16.0); Hypochromasia Slight; Lymphocytes # (A) 1.2 k/uL (1.0-4.8); Lymphocytes % (A) 11 %; MCH 25.5 pg (25.0-35.0); MCHC 31.7 g/dL (31.0-37.0); MCV 80.4 fL (80.0-100.0); Mean Platelet Volume 6.8; Monocytes # (A) 0.5 k/uL (0-1.0); Monocytes % (A) 4 %; Neutrophils # (A) 9.3 k/uL (1.3-7.7); Neutrophils % (A) 82 %; Platelet Count 359 k/uL (150-450); RBC 4.25 m/uL (3.80-5.40); RDW 16.7 % (11.5-15.5); WBC 11.4 k/uL (3.8-10.6)
[2019-11-18 13:38] LABS: ALT 12 U/L (4-34); AST 18 U/L (14-36); African American GFR (CKD) >90 (>60 ml/min/1.73 sqM); Blood Urea Nitrogen 9 mg/dL (7-17); LDH 288 U/L (313-618); Non-African American GFR(CKD) >90 (>60 ml/min/1.73 sqM); Uric Acid 8.1 mg/dL (3.7-7.4)
[2019-11-18] MEDS ORDERED: CITRIC ACID-SODIUM CITRATE 15 ML CUP PO ONE (15:41)
[2019-11-18] MEDS: LACTATED RINGERS 1,000 ML IV SCH (16:16)
--- NOTE | 2019-11-18 16:43 | P.HPOB ---
History of Present Illness H&P Date: 11/18/19 Chief Complaint: Intrauterine at term: Gestational diabetes: Macro somia with histo Patient is a 28-year-old G3 to be 1 at 38 weeks gestation was seen in my office this morning and noted to have 3+ protein. She was sent to labor and delivery to rule out potential atypical eclampsia. Labs were drawn and did reveal significant protein in her urine and a protein creatinine ratio of 0.87. As this is more than double the limit for mild preeclampsia we are planning to do her section today with the understanding she is a little bit early and she is aware there is a slight increased risk of her baby's lungs not be mature. However, should she be in early preeclampsia this may prevent her from getting significantly worse. All the questions were answered for her prior to proceeding to the operative room. She is aware of risks of bleeding/infection/damage to bladder or bowel/vascular injuries/nerve injuries and possible need further surgeries. Her principal course was also, complicated by gestational diabetes for which she was followed with maternal medicine but did not have great control of her sugars even up until the end. She was somewhat noncompliant with treatment protocols as well. Father of baby had hepatitis C her testing was negative. Pertinent labs included a negative blood type, Rh antibody was negative, rubella nonimmune, hepatitis B surface antigen and RPR were both negative. Hepatitis B surface antigen and hepatitis C antibody were both negative. Category 1 tracing is noted prior to proceeding to the operating room. Past Medical History Past Medical History: No Reported History Additional Past Medical History / Comment(s): alcohol syndrome History of Any Multi-Drug Resistant Organisms: None Reported Past Surgical History: Orthopedic Surgery Additional Past Surgical History / Comment(s): shoulder,hernia repair 08/2016 Past Anesthesia/Blood Transfusion Reactions: No Reported Reaction Past Psychological History: Anxiety, Bipolar, Depression Smoking Status: Current every day smoker Past Alcohol Use History: None Reported Past Drug Use History: None Reported - Past Family History Mother Family Medical History: No Reported History Medications and Allergies Allergies Allergy/AdvReac Type Severity Reaction Status Date / Time No Known Allergies Allergy Verified 11/18/19 12:48 Exam Osteopathic Statement: *. No significant issues noted on an osteopathic structural exam other than those noted in the History and Physical/Consult. Vital Signs Temp Pulse Resp BP Pulse Ox 11/18/19 15:37 98.2 F 87 15 123/68 98 11/18/19 12:49 97.2 F L 89 18 106/63 98 Intake and Output 11/18/19 11/18/19 11/18/19 06:59 14:59 22:59 Other: Weight 102.512 kg 102.512 kg - OBG Physical Exam Breast: both: normal (no masses) Abdomen: bowel sounds normal, no diffuse tenderness, no bruit present, no guarding noted, no hepatomegaly, no splenomegaly, no mass Vulva: both: normal Vagina: normal moisture, no discharge Cervix: no lesion, no discharge Uterus: normal size, normal contour Adnexa: both: normal Anus/Rectum: normal perianal skin, no rectal mass, no hemorrhoids, heme negative Results Result Diagrams: 11/18/19 13:10 11/18/19 13:10 Abnormal Lab Results - Last 24 Hours (Table) 11/18/19 11/18/19 11/18/19 Range/Units 12:43 13:10 13:10 WBC 11.4 H (3.8-10.6) k/uL Hgb 10.8 L (11.4-16.0) gm/dL RDW 16.7 H (11.5-15.5) % Neutrophils # 9.3 H (1.3-7.7) k/uL Uric Acid 8.1 H (3.7-7.4) mg/dL Lactate Dehydrogenase 288 L (313-618) U/L Urine Appearance Cloudy H (Clear) Urine Protein 2+ H (Negative) Urine Ketones Trace H (Negative) Ur Leukocyte Esterase Small H (Negative) Urine WBC 9 H (0-5) /hpf Ur Squamous Epith Cells 13 H (0-4) /hpf Urine Mucus Occasional H (None) /hpf
[2019-11-18 16:59] LABS: Anisocytosis Slight; Basophils % (A) 0 %; Eosinophils # (A) 0.2 k/uL (0-0.7); Eosinophils % (A) 1 %; HGB 11.4 gm/dL (11.4-16.0); Hypochromasia Moderate; Lymphocytes # (A) 1.3 k/uL (1.0-4.8); Lymphocytes % (A) 10 %; MCH 26.4 pg (25.0-35.0); MCHC 32.5 g/dL (31.0-37.0); MCV 81.1 fL (80.0-100.0); Monocytes # (A) 0.5 k/uL (0-1.0); Monocytes % (A) 4 %; Neutrophils # (A) 10.9 k/uL (1.3-7.7); Neutrophils % (A) 84 %; Platelet Count 344 k/uL (150-450); Poikilocytosis Slight; RBC 4.32 m/uL (3.80-5.40); RDW 16.2 % (11.5-15.5); WBC 13.1 k/uL (3.8-10.6)
[2019-11-18] MEDS ORDERED: OXYTOCIN 10 UNIT/ML 1 ML VIAL ONE (17:46)
[2019-11-18] MEDS ORDERED: MORPHINE SULFATE (PF) 0.3 MG/0.3 ML SYR ONE (17:46)
[2019-11-18] MEDS ORDERED: ONDANSETRON 4 MG/2 ML VIAL ONE (17:46)
[2019-11-18] MEDS ORDERED: KETOROLAC 30 MG/ML 1 ML VIAL ONE (17:46)
[2019-11-18] MEDS ORDERED: NALOXONE 0.4 MG/ML 1 ML VIAL IV PRN ×2 (18:20→18:36)
[2019-11-18] MEDS ORDERED: diphenhydrAMINE 50 MG/ML 1 ML VIAL IVP PRN ×3 (18:20→18:36)
[2019-11-18] MEDS ORDERED: ONDANSETRON 4 MG/2 ML VIAL IVP PRN (18:20)
[2019-11-18] MEDS ORDERED: MORPHINE SULFATE 2 MG/ML SYRINGE IVP PRN (18:20)
[2019-11-18] MEDS ORDERED: MEASLES-MUMPS-RUBELLA VACC/PF 12,500 UNIT/0.5 ML VIAL SQ ONE (18:36)
[2019-11-18] MEDS ORDERED: ACETAMINOPHEN TAB 325 MG TAB PO PRN (18:36)
[2019-11-18] MEDS ORDERED: diphenhydrAMINE 25 MG CAP PO PRN (18:36)
[2019-11-18] MEDS ORDERED: ZOLPIDEM 5 MG TAB PO PRN (18:36)
[2019-11-18] MEDS ORDERED: diphenhydrAMINE 50 MG CAP PO PRN (18:36)
[2019-11-18] MEDS ORDERED: METOCLOPRAMIDE 5 MG/ML 2 ML VIAL IVP PRN (18:36)
[2019-11-18] MEDS ORDERED: HYDROcodone/APAP 7.5-325MG 1 EACH TAB PO PRN (18:36)
[2019-11-18] MEDS ORDERED: SIMETHICONE 80 MG CHEWABLE PO PRN (18:36)
--- NOTE | 2019-11-18 18:41 | P.OP ---
Date of Procedure: 11/18/19 Preoperative Diagnosis: Intrauterine at term: Atypical preeclampsia: GDMA2, macrosomia with history of shoulder dystocia Postoperative Diagnosis: Same Procedure(s) Performed: Primary low transverse section Anesthesia: spinal Surgeon: Dino Aguilar Application Chemist #1: Darvin Coleman Estimated Blood Loss (ml): 1,000 IV fluids (ml): 1,000 Urine output (ml): 200 Pathology: other (Placenta) Condition: stable Disposition: floor Operative Findings: Female scores of 9 and 9 at one and 5 minutes respectively and weight was 8 lbs. 8 oz. Description of Procedure: Patient was taken to the operating suite where a spinal anesthetic was found be adequate. She was prepped and draped in the normal sterile fashion and placed in the dorsal supine position with leftward tilt. Initially a Pfannenstiel skin incision was made and this incision was then carried through to the underlying layer of the fascia with Bovie cautery. Fascia was then nicked in the midline and this opening was extended laterally with Osuna scissors. Superior and inferior aspect of this incision were then grasped tented up and bluntly and sharply dissected off the rectus muscles. Rectus muscles were then divided the midline and blunt dissection through the peritoneum was made. This opening was then extended superiorly and inferiorly with good visualization of both bowel bladder. Bladder blade was then placed and bladder flap identified and entered with Metzenbaum scissors and carried across face the uterus. It was then bluntly dissected out of the operative field. Knife was then used to incise uterus. This opening was fully developed with hemostat and then bluntly extended. Clear fluid is noted. Head was atraumatically delivered mouth nares bulb suctioned anterior posterior shoulders easily delivered followed by the remainder the baby. Umbilical cord was then clamped cut usual fashion an nursery personnel was present to assume care. Placenta was then delivered intact and Pitocin was added to the IV. Uterus was then exteriorized cleared of clots and debris and closed in 2 layers with 0 Vicryl suture. Once excellent hemostasis was obtained blood and debris was suctioned from the posterior cul-de-sac and the uterus was reinserted into the abdomen. Peritoneal layer was then outlined with hemostats and closed with 3-0 Vicryl. Fascial layer was then closed with 0 Vicryl suture. One layer of 3-0 Vicryl was placed in the deep subcuticular tissues to reapproximate the skin and close the space. Skin was then closed with 3-0 Vicryl subcuticularly. Sponge, lap, needle counts were all correct 2. Patient was then taken to the recovery room in stable and satisfactory condition.
[2019-11-19] MEDS: KETOROLAC 30 MG/ML 1 ML VIAL IVP PRN ×3 (02:41→16:12)
[2019-11-19] MEDS: LACTATED RINGERS 1,000 ML IV SCH ×3 (02:43→20:56)
[2019-11-19 06:19] LABS: Anisocytosis Slight; Basophils % (A) 0 %; Eosinophils # (A) 0.1 k/uL (0-0.7); Eosinophils % (A) 1 %; HCT 29.6 % (34.0-46.0); Hypochromasia Slight; Lymphocytes % (A) 8 %; MCH 25.2 pg (25.0-35.0); MCHC 31.7 g/dL (31.0-37.0); MCV 79.5 fL (80.0-100.0); Mean Platelet Volume 7.1; Monocytes # (A) 0.6 k/uL (0-1.0); Monocytes % (A) 5 %; Neutrophils # (A) 9.9 k/uL (1.3-7.7); Neutrophils % (A) 84 %; Platelet Count 358 k/uL (150-450); RBC 3.71 m/uL (3.80-5.40); RDW 16.6 % (11.5-15.5); WBC 11.7 k/uL (3.8-10.6)
[2019-11-19 06:21] LABS: HGB 9.4 gm/dL (11.4-16.0)
--- NOTE | 2019-11-19 07:36 | P.PN ---
Progress Note - Text Progress Note Date: 11/19/19 (0703) Anesthesia Postop day 1 Subjective: Status Post section with Duramorph. Patient seen and examined. Complaining of mild pruritus, tolerable. VAS 0 pain at rest, up to a 9 out of 10 with movementcounseled on medicine being available for breakthrough pain. No nausea or vomiting. . Gross lower extremity strength intact. Spinal site intact without induration. Without apparent anesthetic complications. Objective: Vital signs reviewed Heart: Regular Rate Lungs: Good chest excursion Abdomen: Appears nondistended Assessment: Status post with Duramorph postop day 1 Plan: Continue current care with your medical management. Anticipated for the Duramorph effects to end today and have increased pain needs at that time
--- NOTE | 2019-11-19 08:44 | P.PNOBGPC ---
Subjective - Subjective Principal diagnosis: Postop day 1 Interval history: anthony is doing very well postop day 1. She is ambulating, voiding and tolerating her diet. She voices no complaints. She is requesting regular diet. All questions are answered for her at this time. We'll plan to advance diet today and continue otherwise current care. Objective - Vital Signs Latest vital signs: Vital Signs Temp Pulse Resp BP Pulse Ox 11/19/19 04:00 97.6 F 81 18 110/73 96 11/19/19 00:00 98.2 F 89 16 118/67 11/18/19 23:00 98.8 F 87 18 118/75 11/18/19 21:20 98.9 F 89 18 124/75 11/18/19 20:45 98.7 F 88 18 119/52 11/18/19 20:15 97.9 F 89 16 118/62 11/18/19 20:00 98.0 F 90 16 116/59 11/18/19 19:45 98.5 F 90 16 116/62 11/18/19 19:30 97.6 F 84 18 142/79 11/18/19 19:20 18 98 11/18/19 19:15 97.4 F L 86 18 117/88 11/18/19 19:00 83 15 123/86 97 11/18/19 18:45 97.4 F L 86 15 124/64 96 11/18/19 15:37 98.2 F 87 15 123/68 98 11/18/19 13:49 18 11/18/19 12:49 97.2 F L 89 18 106/63 98 Intake and Output 11/18/19 11/19/19 11/19/19 22:59 06:59 14:59 Intake Total 1150 200 Output Total 200 1600 Balance 950 -1400 Intake: IV 1000 Oral 150 200 Output: Urine 200 1600 Uretheral (Kim) 800 Other: # Voids 1 Weight 102.512 kg - Exam Lungs: bilateral: normal Chest: Normal S1, Normal S2 Extremities: Present: normal Abdomen: Present: normal appearance, soft. Absent: distention, tenderness Incision: Present: normal, dry, intact Uterus: Present: normal, firm - Labs Labs: Abnormal Lab Results - Last 24 Hours (Table) 11/18/19 11/18/19 11/18/19 Range/Units 12:43 13:10 13:10 WBC 11.4 H (3.8-10.6) k/uL RBC (3.80-5.40) m/uL Hgb 10.8 L (11.4-16.0) gm/dL Hct (34.0-46.0) % MCV (80.0-100.0) fL RDW 16.7 H (11.5-15.5) % Neutrophils # 9.3 H (1.3-7.7) k/uL Uric Acid 8.1 H (3.7-7.4) mg/dL Lactate Dehydrogenase 288 L (313-618) U/L Urine Appearance Cloudy H (Clear) Urine Protein 2+ H (Negative) Urine Ketones Trace H (Negative) Ur Leukocyte Esterase Small H (Negative) Urine WBC 9 H (0-5) /hpf Ur Squamous Epith Cells 13 H (0-4) /hpf Urine Mucus Occasional H (None) /hpf 11/18/19 11/19/19 Range/Units 16:15 05:49 WBC 13.1 H 11.7 H (3.8-10.6) k/uL RBC 3.71 L (3.80-5.40) m/uL Hgb 9.4 L D (11.4-16.0) gm/dL Hct 29.6 L (34.0-46.0) % MCV 79.5 L (80.0-100.0) fL RDW 16.2 H 16.6 H (11.5-15.5) % Neutrophils # 10.9 H 9.9 H (1.3-7.7) k/uL Uric Acid (3.7-7.4) mg/dL Lactate Dehydrogenase (313-618) U/L Urine Appearance (Clear) Urine Protein (Negative) Urine Ketones (Negative) Ur Leukocyte Esterase (Negative) Urine WBC (0-5) /hpf Ur Squamous Epith Cells (0-4) /hpf Urine Mucus (None) /hpf Microbiology - Last 24 Hours (Table) 11/18/19 12:43 Urine Culture - Preliminary Urine,Voided
[2019-11-19] MEDS: SENNOSIDES-DOCUSATE SODIUM 1 EACH TAB PO SCH ×3 (08:50→21:56)
[2019-11-19] MEDS: IBUPROFEN 600 MG TAB PO PRN (21:55)
[2019-11-20 01:34] VITALS: RESP 18
[2019-11-20] MEDS: SENNOSIDES-DOCUSATE SODIUM 1 EACH TAB PO SCH (07:25)
[2019-11-20] MEDS: IBUPROFEN 600 MG TAB PO PRN (07:25)
--- NOTE | 2019-11-20 07:58 | P.DS ---
Providers Date of admission: 11/18/19 14:53 Expected date of discharge: 11/20/19 Attending physician: Dino Aguilar Primary care physician: Stated None Hospital Course: Patient is doing very well postop day 2. She is ambulating, voiding and tolerating her diet. She voices no complaints. Vital signs are stable and afebrile. Heart regular, lungs clear, extremities without pain. Her abdomen is soft her incision is clean dry and intact and she does have bowel sounds. All questions were answered for her at this time and we'll plan discharged to home today. Prescription for [place] and Motrin are 40 to her pharmacy discharge instructions thoroughly reviewed. She'll follow up with me in 1 week force evaluation of incision. Patient Condition at Discharge: Good Plan - Discharge Summary New Discharge Prescriptions: New Ibuprofen [Motrin] 600 mg PO Q6HR PRN #30 tab PRN Reason: Pain HYDROcodone/APAP 5-325MG [[place] 5-325] 1 tab PO Q4HR PRN #30 tab PRN Reason: Pain No Action metFORMIN HCL 1,500 mg PO HS metFORMIN HCL 500 mg PO PC-BRKFST Discharge Medication List metFORMIN HCL 1,500 mg PO HS 11/18/19 [History] metFORMIN HCL 500 mg PO PC-BRKFST 11/18/19 [History] HYDROcodone/APAP 5-325MG [[place] 5-325] 1 tab PO Q4HR PRN #30 tab 11/20/19 [Rx] Ibuprofen [Motrin] 600 mg PO Q6HR PRN #30 tab 11/20/19 [Rx] Follow up Appointment(s)/Referral(s): Dino Aguilar DO [Doctor of Osteopathic Medicine] - 1 Week Activity/Diet/Wound Care/Special Instructions: No heavy lifting, limit stairs and driving, and pelvic rest. If any high temperatures, heavy bleeding, or severe pain call my office Discharge Disposition: HOME SELF-CARE
[2019-11-20 09:38] VITALS: BP 116/76; PULSE 69; TEMP 98.1
== END 2019-11-20 11:55 | disposition home or self-care (01) | DRG 788 ==
LOC: FBPOP 12:13 → 4FBP 14:53
PROVIDERS: ADMIT Obstetrics & Gynecology; ATTEND Obstetrics & Gynecology
PROC: 10D00Z1 Extraction of Products of Conception, Low, Open Approach (ICD-10-PCS; principal; 2019-11-18 18:08)
DX: O14.04 Mild to moderate pre-eclampsia, complicating childbirth (principal); O24.429 Gestational diabetes mellitus in childbirth, unspecified control; F31.9 Bipolar disorder, unspecified; F41.9 Anxiety disorder, unspecified; O99.344 Other mental disorders complicating childbirth; F17.200 Nicotine dependence, unspecified, uncomplicated; O99.334 Smoking (tobacco) complicating childbirth; O36.63X0 Maternal care for excessive fetal growth, third trimester, not applicable or unspecified; O99.73 Diseases of the skin and subcutaneous tissue complicating the puerperium; L29.9 Pruritus, unspecified; Z37.0 Single live birth; Z3A.38 38 weeks gestation of pregnancy
CPT/HCPCS: 59025; 81001; 82565; 82570; 83615; 84156; 84450; 84460; 84520; 84550; 85025; 86850; 86900; 86901; 87086; 88307

== ENCOUNTER → 2021-09-14 | Outpatient (CLI) | payer OTHER ==
--- NOTE | 2021-09-14 20:12 | US ---
EXAMINATION TYPE: Ultrasound OB <= 14 week fetus DATE OF EXAM: 09/14/2021 2:00 PM COMPARISON: None CLINICAL HISTORY: 30-year-old female Z36.89 ENCOUNTER FOR OTHER SPECIFIED SCR. Viability. EXAM PERFORMED: Transabdominal (TA) FINDINGS: EXAM MEASUREMENTS: GESTATIONAL AGE / DATING Physician Established: Not yet established. Dates by LMP: Unknown Dates by First Scan: This is first scan at this facility. Dates by Current Scan for: (13 weeks/5 days) EDC: 03/17/2022 MATERNAL ANATOMY Uterus: Anteverted measuring 14.2 x 11.0 x 6.5 cm. Right Ovary: 3.2 x 1.5 x 1.5 cm. Left Ovary: 3.3 x 1.8 x 1.8 cm. Post CDS / Adnexa: No abnormalities seen. Presence of free fluid: None seen. Presence of corpus luteal cyst: Not seen. Presence of subchorionic bleed: Small anechoic area seen adjacent to the inferior aspect of the gesta tional sac: 2.0 x 1.3 x 0.4 cm. GESTATION / SURVEY CRL: 7.63 cm. (13 weeks/5 days) Yolk Sac (normal less than 6mm): Not visualized. Heart Rate: 146 bpm Rhythm: Normal IUP: Viable IUP Nuchal Translucency 10-14wks (normal less than 3mm): Not well seen, constant movement. Date of LMP: Unknown. Beta HcG (if available): Not available. Addictions Counselor Assistant notes:Exam slightly limited due to patient body habitus. IMPRESSION: 1. Single live intrauterine with gestational age of 13 weeks 5 days by crown-rump length. 2. Small perigestational bleed measuring 2.0 x 1.3 cm. 3. Complete survey recommended at 18-20 weeks.
== END | disposition home or self-care (01) ==
LOC: RADUSWWP 12:31
PROVIDERS: ATTEND Obstetrics & Gynecology
DX: O20.9 Hemorrhage in early pregnancy, unspecified (principal); Z3A.13 13 weeks gestation of pregnancy
CPT/HCPCS: 76801

== ENCOUNTER → 2021-09-18 | Outpatient (CLI) | payer OTHER | END | disposition home or self-care (01) | LOC: LABWHC1 10:15 | PROVIDERS: ATTEND Obstetrics & Gynecology | DX: Z34.81 Encounter for supervision of other normal pregnancy, first trimester (principal); Z3A.00 Weeks of gestation of pregnancy not specified | CPT/HCPCS: 36415; 82950; 83036 ==

== ENCOUNTER 2021-10-03 08:15 | Emergency (ER) | payer OTHER ==
[2021-10-03 08:19] VITALS: TEMP 98.2
[2021-10-03 09:12] LABS: Anisocytosis Slight; Basophils % (A) 0 %; Eosinophils # (A) 0.1 k/uL (0-0.7); Eosinophils % (A) 2 %; HCT 37.2 % (34.0-46.0); HGB 12.3 gm/dL (11.4-16.0); Lymphocytes % (A) 16 %; MCH 28.3 pg (25.0-35.0); MCHC 33.1 g/dL (31.0-37.0); MCV 85.4 fL (80.0-100.0); Mean Platelet Volume 7.1; Monocytes # (A) 0.2 k/uL (0-1.0); Monocytes % (A) 3 %; Neutrophils # (A) 5.2 k/uL (1.3-7.7); Neutrophils % (A) 78 %; Platelet Count 199 k/uL (150-450); RBC 4.35 m/uL (3.80-5.40); RDW 16.4 % (11.5-15.5); WBC 6.6 k/uL (3.8-10.6)
[2021-10-03 09:27] LABS: Amorphous Sediment,Urine Rare /hpf; Appearance,Urine Cloudy (Clear); Bacteria,Urine Occasional /hpf; Bilirubin,Urine 1+ (Negative); Blood,Urine Negative (Negative); Color,Urine Yellow; Glucose,Urine (UA) Negative (Negative); Ketones,Urine 1+ (Negative); Leukocyte Esterase,Urine Moderate (Negative); Mucus,Urine Moderate /hpf; Nitrite,Urine Positive (Negative); PH, Urine 6.5 (5.0-8.0); Protein,Urine 2+ (Negative); RBC,Urine 2 /hpf (0-5); Squamous Epithelial Cell,Urine 35 /hpf (0-4); WBC,Urine 8 /hpf (0-5)
[2021-10-03 09:31] LABS: ALT 12 U/L (4-34); AST 17 U/L (14-36); African American GFR (CKD) >90 (>60 ml/min/1.73 sqM); Albumin 3.5 g/dL (3.5-5.0); Alkaline Phosphatase 38 U/L (38-126); Anion Gap 10 mmol/L; Blood Urea Nitrogen 8 mg/dL (7-17); Calcium 8.6 mg/dL (8.4-10.2); Carbon Dioxide 19 mmol/L (22-30); Chloride 109 mmol/L (98-107); Glucose 98 mg/dL (74-99); Non-African American GFR(CKD) >90 (>60 ml/min/1.73 sqM); Potassium 4.1 mmol/L (3.5-5.1); Sodium 138 mmol/L (137-145); Total Bilirubin 0.3 mg/dL (0.2-1.3); Total Protein 5.8 g/dL (6.3-8.2)
--- NOTE | 2021-10-03 09:32 | ED ---
General Adult HPI - General Chief complaint: Abdominal Pain Stated complaint: 16 wks preg, abd pain Time Seen by Provider: 10/03/21 08:26 Source: patient Mode of arrival: ambulatory Limitations: no limitations - History of Present Illness Initial comments: 30-year-old female , currently 16 presents to the emergency department with abdominal pain. States that she has had right lower quadrant abdominal pain for the past 2 months. She is following with Dr. Quesada. Ultrasound was performed demonstrated that she had a subchorionic hemorrhage. She denies any bleeding. States the pain has persisted and she has not followed with Dr. Quesada in a few weeks. She was concerned about the continued pain and therefore presents emergency department requesting ultrasound. She denies dysuria, hematuria or double voiding. No changes in her bowel habits. No other alleviating, precipitating modifying factors - Related Data Home Medications Medication Instructions Recorded Confirmed metFORMIN HCL 500 mg PO PC-[id number] 11/18/19 11/18/19 metFORMIN HCL [Glucophage] 1,500 mg PO HS 11/18/19 11/18/19 Previous Rx's Medication Instructions Recorded HYDROcodone/APAP 5-325MG [[place] 1 tab PO Q4HR PRN #30 tab 11/20/19 5-325] Ibuprofen [Motrin] 600 mg PO Q6HR PRN #30 tab 11/20/19 Ibuprofen [Motrin] 600 mg PO Q8HR PRN #30 tab 05/15/21 Cephalexin [Keflex] 500 mg PO BID #14 cap 10/03/21 Allergies Allergy/AdvReac Type Severity Reaction Status Date / Time No Known Allergies Allergy Verified 10/03/21 08:19 Review of Systems ROS Statement: Those systems with pertinent positive or pertinent negative responses have been documented in the HPI. ROS Other: All systems not noted in ROS Statement are negative. Past Medical History Past Medical History: No Reported History Additional Past Medical History / Comment(s): alcohol syndrome History of Any Multi-Drug Resistant Organisms: None Reported Past Surgical History: Orthopedic Surgery Additional Past Surgical History / Comment(s): shoulder,hernia repair 08/2016 Past Anesthesia/Blood Transfusion Reactions: No Reported Reaction Past Psychological History: Anxiety, Bipolar, Depression Smoking Status: Current every day smoker Past Alcohol Use History: None Reported Past Drug Use History: None Reported - Past Family History Mother Family Medical History: No Reported History General Exam Limitations: no limitations General appearance: alert, in no apparent distress Head exam: Present: atraumatic, normocephalic, normal inspection Eye exam: Present: normal appearance, PERRL, EOMI. Absent: scleral icterus, conjunctival injection, periorbital swelling ENT exam: Present: normal exam, mucous membranes moist Neck exam: Present: normal inspection. Absent: tenderness, meningismus, lymphadenopathy Respiratory exam: Present: normal lung sounds bilaterally. Absent: respiratory distress, wheezes, rales, rhonchi, stridor Cardiovascular Exam: Present: regular rate, normal rhythm, normal heart sounds. Absent: systolic murmur, diastolic murmur, rubs, gallop, clicks GI/Abdominal exam: Present: soft, tenderness (right lower pelvis), normal bowel sounds. Absent: distended, guarding, rebound, rigid Extremities exam: Present: normal inspection, full ROM, normal capillary refill. Absent: tenderness, pedal edema, joint swelling, calf tenderness Back exam: Present: normal inspection Neurological exam: Present: alert, oriented X3, CN II-XII intact Psychiatric exam: Present: normal affect, normal mood Skin exam: Present: warm, dry, intact, normal color. Absent: rash Course Vital Signs 10/03/21 10/03/21 08:16 10:55 Temperature 98.2 F Pulse Rate 79 81 Respiratory 20 16 Rate Blood Pressure 103/69 115/73 O2 Sat by Pulse 97 99 Oximetry Medical Decision Making - Medical Decision Making Upon arrival the patient is placed into room 23. History and physical exam was performed. I will increase his her conduct an ultrasound is performed. Laboratory studies reviewed. Urinalysis is positive for nitrites and occasional bacteria. This is not a clean catch specimen however will be treated as pat ient is currently . Ultrasound demonstrates a 17 week 2 day fetus with positive heart tones. Low-lying placenta. No subchorionic hemorrhage. Results are discussed the patient. Patient will be discharged home and treated with Keflex for urinary tract infection. Instructed to follow-up with her DOG SHOW JUDGE within 1 week. Return for any worsening symptoms for patient agreed to the plan was discharged home in stable condition - Lab Data Result diagrams: 10/03/21 08:57 10/03/21 08:57 Lab Results 10/03/21 10/03/21 10/03/21 Range/Units 08:57 08:57 08:57 WBC 6.6 (3.8-10.6) k/uL RBC 4.35 (3.80-5.40) m/uL Hgb 12.3 (11.4-16.0) gm/dL Hct 37.2 (34.0-46.0) % MCV 85.4 (80.0-100.0) fL MCH 28.3 (25.0-35.0) pg MCHC 33.1 (31.0-37.0) g/dL RDW 16.4 H (11.5-15.5) % Plt Count 199 (150-450) k/uL MPV 7.1 Neutrophils % 78 % Lymphocytes % 16 % Monocytes % 3 % Eosinophils % 2 % Basophils % 0 % Neutrophils # 5.2 (1.3-7.7) k/uL Lymphocytes # 1.0 (1.0-4.8) k/uL Monocytes # 0.2 (0-1.0) k/uL Eosinophils # 0.1 (0-0.7) k/uL Basophils # 0.0 (0-0.2) k/uL Anisocytosis Slight Sodium 138 (137-145) mmol/L Potassium 4.1 (3.5-5.1) mmol/L Chloride 109 H (98-107) mmol/L Carbon Dioxide 19 L (22-30) mmol/L Anion Gap 10 mmol/L BUN 8 (7-17) mg/dL Creatinine 0.60 (0.52-1.04) mg/dL Est GFR (CKD-EPI)AfAm >90 (>60 ml/min/1.73 sqM) Est GFR (CKD-EPI)NonAf >90 (>60 ml/min/1.73 sqM) Glucose 98 (74-99) mg/dL Calcium 8.6 (8.4-10.2) mg/dL Total Bilirubin 0.3 (0.2-1.3) mg/dL AST 17 (14-36) U/L ALT 12 (4-34) U/L Alkaline Phosphatase 38 (38-126) U/L Total Protein 5.8 L (6.3-8.2) g/dL Albumin 3.5 (3.5-5.0) g/dL Urine Color Yellow Urine Appearance Cloudy H (Clear) Urine pH 6.5 (5.0-8.0) Ur Specific [place] 1.046 H (1.001-1.035) Urine Protein 2+ H (Negative) Urine Glucose (UA) Negative (Negative) Urine Ketones 1+ H (Negative) Urine Blood Negative (Negative) Urine Nitrite Positive H (Negative) Urine Bilirubin 1+ H (Negative) Urine Urobilinogen 4.0 (<2.0) mg/dL Ur Leukocyte Esterase Moderate H (Negative) Urine RBC 2 (0-5) /hpf Urine WBC 8 H (0-5) /hpf Ur Squamous Epith Cells 35 H (0-4) /hpf Amorphous Sediment Rare H (None) /hpf Urine Bacteria Occasional H (None) /hpf Urine Mucus Moderate H (None) /hpf Blood Type Blood Type Recheck Bld Type Recheck Status 10/03/21 Range/Units 08:57 WBC (3.8-10.6) k/uL RBC (3.80-5.40) m/uL Hgb (11.4-16.0) gm/dL Hct (34.0-46.0) % MCV (80.0-100.0) fL MCH (25.0-35.0) pg MCHC (31.0-37.0) g/dL RDW (11.5-15.5) % Plt Count (150-450) k/uL MPV Neutrophils % % Lymphocytes % % Monocytes % % Eosinophils % % Basophils % % Neutrophils # (1.3-7.7) k/uL Lymphocytes # (1.0-4.8) k/uL Monocytes # (0-1.0) k/uL Eosinophils # (0-0.7) k/uL Basophils # (0-0.2) k/uL Anisocytosis Sodium (137-145) mmol/L Potassium (3.5-5.1) mmol/L Chloride (98-107) mmol/L Carbon Dioxide (22-30) mmol/L Anion Gap mmol/L BUN (7-17) mg/dL Creatinine (0.52-1.04) mg/dL Est GFR (CKD-EPI)AfAm (>60 ml/min/1.73 sqM) Est GFR (CKD-EPI)NonAf (>60 ml/min/1.73 sqM) Glucose (74-99) mg/dL Calcium (8.4-10.2) mg/dL Total Bilirubin (0.2-1.3) mg/dL AST (14-36) U/L ALT (4-34) U/L Alkaline Phosphatase (38-126) U/L Total Protein (6.3-8.2) g/dL Albumin (3.5-5.0) g/dL Urine Color Urine Appearance (Clear) Urine pH (5.0-8.0) Ur Specific [place] (1.001-1.035) Urine Protein (Negative) Urine Glucose (UA) (Negative) Urine Ketones (Negative) Urine Blood (Negative) Urine Nitrite (Negative) Urine Bilirubin (Negative) Urine Urobilinogen (<2.0) mg/dL Ur Leukocyte Esterase (Negative) Urine RBC (0-5) /hpf Urine WBC (0-5) /hpf Ur Squamous Epith Cells (0-4) /hpf Amorphous Sediment (None) /hpf Urine Bacteria (None) /hpf Urine Mucus (None) /hpf Blood Type O Positive Blood Type Recheck O Pos Bld Type Recheck Status No Disposition Clinical Impression: Second trimester , Pelvic cramping Disposition: HOME SELF-CARE Condition: Stable Instructions (If sedation given, give patient instructions): (ED), Urinary Tract Infection in Women (ED) Additional Instructions: Please follow-up with Dr. Quesada. Return to the emergency room for any new or worsening symptoms Prescriptions: Cephalexin [Keflex] 500 mg PO BID #14 cap Is patient prescribed a controlled substance at d/c from ED?: No Referrals: None,Stated [Primary Care Provider] - 1-2 days Rosa Elena Quesada DO [Doctor of Osteopathic Medicine] - 1-2 days Time of Disposition: 10:34
[2021-10-03 09:33] LABS: Specific Gravity,Urine 1.046 (1.001-1.035)
--- NOTE | 2021-10-03 09:53 | US ---
EXAMINATION TYPE: US OB >= 14 wk fetus DATE OF EXAM: 10/03/2021 COMPARISON: US 2021 CLINICAL HISTORY: painPelvic / abdomen pain TECHNIQUE: Transabdominal (TA) GESTATIONAL AGE / DATING Physician Established: (16 weeks/3 days) EDC: 03/17/2022 Dates by LMP: LMP unknown Dates by First Scan: (16 weeks/3 days) EDC: 03/17/2022 Dates by Current Scan: (17 weeks/2 days) EDC: 03/11/2022 SURVEY IUP: Single PLACENTA: Posterior PREVIA: Low Lying - tip of placenta 0.6cm from internal cervical os DALE: 11.2 cm Normal CERVICAL LENGTH (transabdominal: norm > 3.0cm): 4.9 cm BIOMETRY PRESENTATION: Breech LIE: Transverse with head maternal Left BPD: 3.9 cm 17 weeks / 6 days HC: 13.9 cm 17 weeks / 2 days AC: 11.4 cm 17 weeks / 1 days FL: 2.4 cm 17 weeks / 1 days ESTIMATED WEIGHT IN GRAMS: 183.6 grams ESTIMATED WEIGHT IN LBS/OZ: 0 lbs. 6 oz. WEIGHT PERCENTAGE BASED ON ESTABLISHED DATES: 87% HC/AC: 1.22 Normal FL/AC: 20.76 HEART RATE: 143 bpm RHYTHM: Normal IMPRESSION: Limited survey. Single viable intrauterine corresponding to ultrasound age of 17 week s 2 days with estimated date of delivery 03/11/2022
[2021-10-03 10:57] VITALS: BP 115/73; PULSE 81; RESP 16
== END 2021-10-03 10:56 | disposition home or self-care (01) ==
LOC: EC 08:15
DX: O26.892 Other specified pregnancy related conditions, second trimester (principal); R10.2 Pelvic and perineal pain; O99.332 Smoking (tobacco) complicating pregnancy, second trimester; F17.200 Nicotine dependence, unspecified, uncomplicated; Z3A.17 17 weeks gestation of pregnancy; Z67.40 Type O blood, Rh positive
CPT/HCPCS: 36415; 76805; 80053; 81001; 85025; 86900; 86901; 99284

== ENCOUNTER 2022-03-12 06:01 | Inpatient (IN) | payer OTHER ==
--- NOTE | 2022-03-11 16:18 | P.HPOB ---
History of Present Illness H&P Date: 03/11/22 Chief Complaint: Scheduled repeat with tubal ligation This is a 31 y.o. female, 3, para 2, with an estimated dated of confinement of 03/16/2022, estimated gestational age of 39-3/7 weeks, who presents for repeat low transverse section with bilateral partial salpingectomy for family planning. Her has been complicated by poorly controlled gestational diabetes on insulin. She did not go to [facility] because she was very late in getting her 3 hour GTT done and they were unable to get her in . labs: Hepatitis B surface antigen-neg RPR-NR Rubella-immune Blood type-O+ Antibody screen-neg HIV-NR Hemoglobin-13.5 Random glucose-79 1 hr. GTT-153 3 hr. GTT-3 values high GBS-positive OB Hx: . 1st was vaginal delivery at term with pre-eclampsia. 2nd was section at term with gestational diabetes and pre- eclampsia. 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 History of living in a alf. Review of Systems Constitutional: Denies chills, Denies fever Eyes: denies blurred vision, denies pain Ears, nose, mouth and throat: Denies headache, Denies sore throat Cardiovascular: Denies chest pain, Denies shortness of breath Respiratory: Denies cough Gastrointestinal: Reports abdominal pain (irregular contractions) Genitourinary: Reports pelvic pain, Reports Musculoskeletal: Reports low back pain Integumentary: Denies pruritus, Denies rash Neurological: Denies numbness, Denies weakness Psychiatric: Reports anxiety, Reports depression Past Medical History Past Medical History: Sleep Apnea/CPAP/BIPAP Additional Past Medical History / Comment(s): alcohol syndrome, gestational diabetes-on insulin History of Any Multi-Drug Resistant Organisms: None Reported Past Surgical History: Hernia Repair (umbilical), Orthopedic Surgery (R. rotator cuff) Past Anesthesia/Blood Transfusion Reactions: No Reported Reaction Past Psychological History: Anxiety, Bipolar, Depression Smoking Status: Current every day smoker Past Alcohol Use History: None Reported Past Drug Use History: None Reported - Past Family History Mother Family Medical History: No Reported History Medications and Allergies Home Medications Medication Instructions Recorded Confirmed Type Insulin Glargine,Hum.rec.anlog 15 units SQ DAILY 03/11/22 03/12/22 History [Lantus Solostar Pen] [id number]/Iron/FA/O3/Dha/Epa/Fish 1 each PO DAILY 03/11/22 03/12/22 History [ Multi-Dha Softgel] Allergies Allergy/AdvReac Type Severity Reaction Status Date / Time No Known Allergies Allergy Verified 10/03/21 08:19 Exam Osteopathic Statement: *. No significant issues noted on an osteopathic stru ctural exam other than those noted in the History and Physical/Consult. HEENT: within normal limits Heart: regular rate and rhythm Lungs: clear to auscultation bilaterally Abdomen: , non-tender Cervix: 2 cm/ 60%/-2 heart tones: 140's by doppler Extremities: neg. Garett's Results Result Diagrams: 03/12/22 06:41 Assessment and Plan (1) 39 weeks gestation of Current Visit: No Status: Acute Code(s): Z3A.39 - 39 WEEKS GESTATION OF SNOMED Code(s): 47025318 (2) Gestational diabetes mellitus Current Visit: No Status: Acute Code(s): O24.419 - GESTATIONAL DIABETES MELLITUS IN , UNSP CONTROL SNOMED Code(s): 33989231 (3) Family planning Current Visit: No Status: Acute Code(s): Z30.09 - ENCOUNTER FOR OTH GENERAL CNSL AND ADVICE ON CONTRACEPTION SNOMED Code(s): 281930674 (4) Previous delivery affecting Current Visit: No Status: Acute Code(s): O34.219 - MATERNAL CARE FOR UNSP TYPE SCAR FROM PREVIOUS DEL SNOMED Code(s): 778180564 Plan: Proceed with repeat low transverse section with bilateral partial salpingectomy. I have discussed the risks, benefits, and alternative therapies for the above- mentioned procedure and for both sedation/anesthesia as well as necessary blood products administration, if indicated, as they pertain to this patient. The patient has indicated her understanding and acceptance of the risks and procedures discussed.
[2022-03-12] MEDS ORDERED: LACTATED RINGERS 1,000 ML IV ONE (06:13)
[2022-03-12] MEDS ORDERED: LIDOCAINE 1% (10MG/ML) FOR IV START INTRADERMA PRN (06:13)
[2022-03-12] MEDS ORDERED: LACTATED RINGERS 1,000 ML IV SCH (06:13)
[2022-03-12 06:22] LABS: Glucose,Whole Blood 107 mg/dL (70-110)
[2022-03-12 07:06] LABS: Anisocytosis Slight; Basophils % (A) 0 %; Eosinophils # (A) 0.2 k/uL (0-0.7); Eosinophils % (A) 2 %; HCT 34.6 % (34.0-46.0); HGB 11.4 gm/dL (11.4-16.0); Hypochromasia Slight; Lymphocytes # (A) 1.2 k/uL (1.0-4.8); Lymphocytes % (A) 11 %; MCH 25.9 pg (25.0-35.0); MCHC 33.1 g/dL (31.0-37.0); MCV 78.4 fL (80.0-100.0); Microcytosis Slight; Monocytes # (A) 0.4 k/uL (0-1.0); Monocytes % (A) 4 %; Neutrophils # (A) 9.3 k/uL (1.3-7.7); Neutrophils % (A) 82 %; Platelet Count 229 k/uL (150-450); Poikilocytosis Slight; RBC 4.41 m/uL (3.80-5.40); RDW 16.4 % (11.5-15.5); WBC 11.3 k/uL (3.8-10.6)
[2022-03-12] MEDS: CITRIC ACID-SODIUM CITRATE 15 ML CUP PO ONE ×2 (07:12→07:14)
[2022-03-12] MEDS ORDERED: MORPHINE SULFATE (PF) 0.3 MG/0.3 ML SYR ONE (07:50)
[2022-03-12] MEDS ORDERED: fentaNYL (PF) 50 MCG/ML 2 ML AMP ONE (07:50)
[2022-03-12] MEDS ORDERED: KETOROLAC 15 MG/ML 1 ML VIAL ONE (07:50)
[2022-03-12] MEDS ORDERED: ONDANSETRON 4 MG/2 ML VIAL ONE (07:50)
[2022-03-12] MEDS ORDERED: OXYTOCIN 30 UNITS/500 ML NS BAG IV ONE (07:50)
[2022-03-12] MEDS ORDERED: PROPOFOL 10 MG/ML 20 ML VIAL IV ONE (07:50)
[2022-03-12] MEDS ORDERED: DEXAMETHASONE SOD PHOSPHATE 4 MG/ML 1 ML VIAL ONE (07:50)
[2022-03-12] MEDS ORDERED: SODIUM CHLORIDE 0.9% 100 ML BAG ONE (07:50)
--- NOTE | 2022-03-12 08:42 | P.OP ---
Date of Procedure: 03/12/22 Preoperative Diagnosis: 1. Intrauterine at 39-3/7 weeks. 2. History of previous section. 3. Gestational diabetes on insulin. Postoperative Diagnosis: Same Procedure(s) Performed: Repeat low transverse section Anesthesia: spinal (Duramorph) Surgeon: Rosa Elena Quesada Estimated Blood Loss (ml): 600 Pathology: other (Placenta) Condition: stable Disposition: floor Indications for Procedure: This is a 31-year-old female 3 para 2 at 39-3/7 weeks who presents for scheduled repeat section. Her has been complicated by gestational diabetes on insulin but poorly controlled. She initially had requested a tubal ligation but declined right before surgery. I have discussed the risks, benefits, and alternative therapies for the above- mentioned procedure and for both sedation/anesthesia as well as necessary blood products administration, if indicated, as they pertain to this patient. The patient has indicated her understanding and acceptance of the risks and procedures discussed. Operative Findings: A viable male is noted in the vertex presentation with scores of 8 at 1 minute and 9 at 5 minutes and weight of 9 lbs. 1 oz. Normal uterus tubes and ovaries are noted. Description of Procedure: The patient is taken to the operating room where she is placed in the dorsal supine position with leftward tilt after spinal Duramorph anesthesia is given. She is prepped and draped in the normal sterile fashion. Skin was tested and found to be adequately anesthetized. A Pfannenstiel skin incision was made with a scalpel. A second knife was used to carry the incision down to the underlying layer of fascia. The fascia was nicked in the midline with a scalpel and then extended laterally bilaterally with Osuna scissors. The anterior lip of the fasc ia was grasped with 2 Calvin clamps and then dissected off the underlying rectus muscle in the midline with Osuna scissors. The inferior aspect of the fascial incision was grasped with 2 Calvin clamps and dissected off the underlying rectus muscle and the midline with Osuna scissors. Next the peritoneum layer was tented up with 2 hemostats and then entered sharply with the scalpel. The incision is extended superiorly and inferiorly with Metzenbaum scissors. Next a DeLee retractor is placed. The vesicouterine peritoneum is entered sharply with Metzenbaum scissors and extended laterally bilaterally with Metzenbaum scissors and then the bladder flap is pushed inferiorly. The lower uterine segment is incised in transverse fashion with the scalpel and then bluntly entered with a hemostat. Clear fluid is noted. The incision was then extended laterally bilaterally with 2 fingers. Next the infant's head is delivered through the incision. Nose and mouth are bulb suctioned. The remainder of the is easily delivered and placed on mother's abdomen. Cord is clamped and cut. is taken to warmer by nursing staff. Uterine fundus is gently massaged and placenta is delivered manually. Uterus is exteriorized and cleared of all clots and debris. Uterine incision is closed with 0 Vicryl suture in a running locked fashion. A second layer of 0 Vicryl suture is used in a running fashion for hemostasis. Posterior cul-de-sac is suctioned of all clots and debris. Uterus is returned to the abdomen. Incision is noted to be hemostatic. Peritoneal layer is closed with 0 Vicryl suture in a running fashion. Muscle layer is reapproximated with 0 Vicryl suture in interrupted fashion. Fascia layer is then closed with 0 PDS suture with 2 sutures meeting in the midline and the knots buried in either side and in the midline. The subcutaneous tissue was then closed with 2-0 Vicryl suture. Skin layer was then closed with jesús. All sponge and needle counts are correct. The patient is taken to recovery room in stable condition.
[2022-03-12] MEDS ORDERED: NALOXONE 0.4 MG/ML 1 ML VIAL IV PRN ×2 (08:53→08:57)
[2022-03-12] MEDS ORDERED: MORPHINE SULFATE 2 MG/ML SYRINGE IVP PRN (08:53)
[2022-03-12] MEDS ORDERED: ONDANSETRON 4 MG/2 ML VIAL IVP PRN ×2 (08:53→08:57)
[2022-03-12] MEDS ORDERED: diphenhydrAMINE 50 MG/ML 1 ML VIAL IVP PRN ×3 (08:53→08:57)
[2022-03-12] MEDS ORDERED: HYDROmorphone 1 MG/ML 1 ML SYRINGE IVP PRN (08:57)
[2022-03-12] MEDS ORDERED: OXYTOCIN 30 UNITS/500 ML NS 30 UNIT in SALINE 1 500ML.BAG IV SCH (08:57)
[2022-03-12] MEDS ORDERED: METOCLOPRAMIDE 5 MG/ML 2 ML VIAL IVP PRN (08:57)
[2022-03-12] MEDS ORDERED: diphenhydrAMINE 50 MG CAP PO PRN (08:57)
[2022-03-12] MEDS ORDERED: ZOLPIDEM 5 MG TAB PO PRN (08:57)
[2022-03-12] MEDS ORDERED: LANOLIN CREAM 5 GM TUBE TOPICAL PRN (08:57)
[2022-03-12] MEDS ORDERED: diphenhydrAMINE 25 MG CAP PO PRN (08:57)
[2022-03-12] MEDS ORDERED: HYDROmorphone 0.5 MG/0.5 ML SYRINGE IVP PRN (08:57)
[2022-03-12] MEDS: SENNOSIDES-DOCUSATE SODIUM 1 EACH TAB PO SCH ×2 (09:10→19:54)
[2022-03-12] MEDS: IBUPROFEN 600 MG TAB PO SCH (20:06)
[2022-03-12] MEDS: ACETAMINOPHEN TAB 500 MG TAB PO SCH ×2 (23:51→23:52)
[2022-03-12] MEDS: KETOROLAC 15 MG/ML 1 ML VIAL IVP SCH (23:52)
[2022-03-12] MEDS: ACETAMINOPHEN IV (For NPO) 1,000 MG in EMPTY BAG 1 BAG IVPB SCH (23:52)
[2022-03-13] MEDS: KETOROLAC 15 MG/ML 1 ML VIAL IVP SCH ×2 (03:15→07:43)
[2022-03-13] MEDS: SIMETHICONE 80 MG CHEWABLE PO PRN (03:26)
[2022-03-13] MEDS: IBUPROFEN 600 MG TAB PO SCH ×5 (03:27→21:16)
[2022-03-13] MEDS: ACETAMINOPHEN TAB 500 MG TAB PO SCH ×4 (04:04→14:19)
[2022-03-13 07:04] LABS: Anisocytosis Slight; Basophils % (A) 0 %; Eosinophils # (A) 0.1 k/uL (0-0.7); Eosinophils % (A) 1 %; Hypochromasia Slight; Lymphocytes # (A) 1.3 k/uL (1.0-4.8); Lymphocytes % (A) 13 %; MCH 26.1 pg (25.0-35.0); MCHC 32.8 g/dL (31.0-37.0); MCV 79.5 fL (80.0-100.0); Mean Platelet Volume 7.6; Monocytes # (A) 0.5 k/uL (0-1.0); Monocytes % (A) 5 %; Neutrophils # (A) 7.9 k/uL (1.3-7.7); Neutrophils % (A) 80 %; Platelet Count 222 k/uL (150-450); RDW 16.3 % (11.5-15.5); WBC 9.9 k/uL (3.8-10.6)
--- NOTE | 2022-03-13 07:06 | P.PN ---
Progress Note - Text Progress Note Date: 03/13/22 Postoperative day 1 status post section under spinal anesthesia, and i ntrathecal morphine given for postoperative analgesia, patient doing well, there is no anesthesia related complications, Patient had no headache, vital signs stable , Assessment and plan= postop day 1 status post , doing well there is no anesthesia related complication.
[2022-03-13 07:09] LABS: HGB 8.9 gm/dL (11.4-16.0)
[2022-03-13] MEDS: SENNOSIDES-DOCUSATE SODIUM 1 EACH TAB PO SCH ×2 (08:31→21:15)
--- NOTE | 2022-03-13 08:36 | P.PNOBGPC ---
Subjective - Subjective Principal diagnosis: Status post repeat low transverse section postoperative day #1 Interval history: Patient is doing well. She is passing flatus but no bowel movement yet. She is ambulating. She is urinating without difficulty. Lochia is decreasing. Her p ain is well-controlled at this time. Patient reports: Reports appetite normal, Reports voiding normally, Reports pain well controlled, Reports ambulating normally [place]: doing well Objective - Vital Signs Latest vital signs: Vital Signs Temp Pulse Resp BP Pulse Ox 03/13/22 03:59 97.5 F L 76 15 114/78 96 03/12/22 23:50 98.5 F 74 19 119/73 97 03/12/22 20:00 97.3 F L 81 19 103/70 95 03/12/22 17:00 14 03/12/22 16:00 97.7 F 84 14 101/67 03/12/22 15:53 14 03/12/22 10:45 98.3 F 69 14 119/72 03/12/22 10:15 73 16 127/58 03/12/22 09:53 14 97 03/12/22 09:45 68 14 120/66 03/12/22 09:30 66 14 97 03/12/22 09:15 68 16 113/69 03/12/22 09:00 68 16 117/77 96 03/12/22 08:53 14 97 03/12/22 08:45 97.4 F L 74 14 128/73 95 Intake and Output 03/12/22 03/13/22 03/13/22 22:59 06:59 14:59 Intake Total 720 480 Output Total 800 Balance -80 480 Intake: Oral 720 480 Output: Urine 800 Uretheral (Kim) 800 Other: # Voids 2 - Exam Extremities: Present: normal. Absent: tenderness, edema Abdomen: Present: normal appearance, soft (Positive bowel sounds 4). Absent: distention, tenderness Incision: Present: normal, dry, intact. Absent: erythematous Uterus: Present: normal, firm. Absent: tenderness - Labs Labs: Abnormal Lab Results - Last 24 Hours (Table) 03/13/22 Range/Units 06:12 RBC 3.40 L (3.80-5.40) m/uL Hgb 8.9 L D (11.4-16.0) gm/dL Hct 27.0 L (34.0-46.0) % MCV 79.5 L (80.0-100.0) fL RDW 16.3 H (11.5-15.5) % Neutrophils # 7.9 H (1.3-7.7) k/uL Assessment and Plan Assessment: Status post repeat low transverse section postoperative day #1 (1) 39 weeks gestation of Current Visit: No Status: Acute Code(s): Z3A.39 - 39 WEEKS GESTATION OF SNOMED Code(s): 79136698 (2) Gestational diabetes mellitus Current Visit: No Status: Acute Code(s): O24.419 - GESTATIONAL DIABETES MELLITUS IN , UNSP CONTROL SNOMED Code(s): 45486589 (3) Family planning Current Visit: No Status: Acute Code(s): Z30.09 - ENCOUNTER FOR OT GENERAL CNSL AND ADVICE ON CONTRACEPTION SNOMED Code(s): 666235894 (4) Previous delivery affecting Current Visit: No Status: Acute Code(s): O34.219 - MATERNAL CARE FOR UNSP TYPE SCAR FROM PREVIOUS DEL SNOMED Code(s): 164587193 Plan: Continue with postoperative and care today. Will advance diet as tolerated.
[2022-03-13 09:00] VITALS: RESP 16
[2022-03-14] MEDS: SIMETHICONE 80 MG CHEWABLE PO PRN (01:23)
[2022-03-14] MEDS: IBUPROFEN 600 MG TAB PO SCH (06:54)
[2022-03-14] MEDS: SENNOSIDES-DOCUSATE SODIUM 1 EACH TAB PO SCH (09:00)
[2022-03-14] MEDS: ACETAMINOPHEN TAB 500 MG TAB PO SCH ×2 (09:03→09:14)
--- NOTE | 2022-03-14 09:11 | P.DS ---
Providers Date of admission: 03/12/22 06:01 Expected date of discharge: 03/14/22 Attending physician: Rosa Elena Quesada Primary care physician: Stated None - Discharge Diagnosis(es) (1) 39 weeks gestation of Current Visit: No Status: Acute (2) Gestational diabetes mellitus Current Visit: No Status: Acute (3) Family planning Current Visit: No Status: Acute (4) Previous delivery affecting Current Visit: No Status: Acute Hospital Course: This is a 31-year-old female 3 para 2 at 39-3/7 weeks who presented for scheduled repeat section. She underwent a repeat low transverse section under spinal Duramorph anesthesia and delivered a viable male infant with scores of 8 at 1 minute and 9 at 5 minutes and weight of 9 lbs. 1 oz. Her postoperative and courses have been uncomplicated. Her lochia is decreasing. Her pain is been fairly well- controlled. She is bottle feeding. She is passing flatus and bowel movement. Vital signs are stable. Abdomen is soft with fundus firm and nontender, positive bowel sounds 4.. Incision is clean dry and intact with jesús in place. Extremities show negative Homans. Impression is status post repeat low transverse section postoperative day #2. Plan is to discharge home later today as long as baby is able to go. Routine and postoperative instructions are given. Jesús will be removed and Steri-Strips placed prior to discharge. She is advised follow-up in the office in 1 week for a postoperative check and in 6 weeks for a check. She will be given a prescription for ibuprofen. She is advised to call the office if she has any further questions or concerns prior to her appointment time. Procedures: Repeat low transverse section on 03/12/2022 Patient Condition at Discharge: Stable Plan - Discharge Summary New Discharge Prescriptions: New Ibuprofen [Motrin] 600 mg PO Q6H #60 tab Continue Lip796/Iron/FA/O3/Dha/Epa/Fish [ Multi-Dha Softgel] 1 each PO DAILY Discontinued Insulin Glargine,Hum.rec.anlog [Lantus Solostar Pen] 15 units SQ DAILY Discharge Medication List Cak505/Iron/FA/O3/Dha/Epa/Fish [ Multi-Dha Softgel] 1 each PO DAILY 03/11/22 [History] Ibuprofen [Motrin] 600 mg PO Q6H #60 tab 03/14/22 [Rx] Follow up Appointment(s)/Referral(s): Rosa Elena Quesada DO [Doctor of Osteopathic Medicine] - 03/20/22 1:30 am (PP 05/02/2022 @3:45 Pm) Activity/Diet/Wound Care/Special Instructions: Instructions 1. Do not begin any exercise program for 3 weeks. 2. Do not resume sexual relations for 3 weeks or longer if uncomfortable. 3. You may take tub baths or showers at any time. 4. You may use tampons if desired after 3 weeks. 5. Keep the area of episiotomy (stitches) clean and dry. 6. If you are not nursing, wear a good fitting, supportive bra during the day and limit fluid intake for at least 1 week to prevent breast engorgement. 7. Call the office, [phone], within the next week to make appointment for your 6 week checkup if it has not already been made. 8. Report any of the following occurrences to the doctor promptly: a. Heavy, excessive bleeding b. Chills, fever c. Burning or frequency of urination d. Pain or redness and breasts if nursing e. Increasing pain or swelling in episiotomy (stitches). In addition to the above instructions, the following additional should be followed: 1. No heavy lifting or straining (exercising) until after 6 week checkup. 2. Keep abdominal incision clean and dry: You may wear a dressing if more comfortable. 3. Make office appointment for 10 days after going home or as instructed by her doctor. Discharge Disposition: HOME SELF-CARE
[2022-03-14 09:13] VITALS: BP 134/75; PULSE 85; TEMP 98.1
== END 2022-03-14 14:21 | disposition home or self-care (01) | DRG 788 ==
LOC: 4FBP 06:01
PROVIDERS: ADMIT Obstetrics & Gynecology; ATTEND Obstetrics & Gynecology
PROC: 4A0HXCZ Measurement of Products of Conception, Cardiac Rate, External Approach (ICD-10-PCS; 2022-03-12)
PROC: 10D00Z1 Extraction of Products of Conception, Low, Open Approach (ICD-10-PCS; principal; 2022-03-12 08:00)
DX: O34.211 Maternal care for low transverse scar from previous cesarean delivery (principal); O24.424 Gestational diabetes mellitus in childbirth, insulin controlled; F17.210 Nicotine dependence, cigarettes, uncomplicated; F31.9 Bipolar disorder, unspecified; F41.9 Anxiety disorder, unspecified; O99.334 Smoking (tobacco) complicating childbirth; O99.344 Other mental disorders complicating childbirth; Z37.0 Single live birth; Z3A.39 39 weeks gestation of pregnancy; O99.824 Streptococcus B carrier state complicating childbirth; Z87.19 Personal history of other diseases of the digestive system; Z87.51 Personal history of pre-term labor
CPT/HCPCS: 83036; 85025; 86803; 86850; 86900; 86901

== ENCOUNTER 2022-07-24 15:09 | Emergency (ER) | payer OTHER ==
[2022-07-24 15:25] VITALS: RESP 18
--- NOTE | 2022-07-24 15:27 | ED ---
General Adult HPI - General Stated complaint: Shoulder injury Time Seen by Provider: 07/24/22 15:15 Source: patient, RN notes reviewed, old records reviewed - History of Present Illness Initial comments: This is a 31-year-old female presents emergency Department complaining that her left shoulder hurts. Patient states that history of being dislocated and today she bent down to seed cone picker her baby and she fell her shoulder dislocate she thinks it's still dislocated. Patient states she is unable to move at this time. Patient denies any numbness weakness. Patient denies any clavicle pain. Patient denies any other symptoms at this time. - Related Data Home Medications Medication Instructions Recorded Confirmed Ergocalciferol (Vitamin D2) 1,250 mcg PO SA 07/24/22 07/24/22 [Drisdol (50,000 Iu)] Escitalopram [Lexapro] 10 mg PO DAILY 07/24/22 07/24/22 norgestimate-ethinyl estradioL 1 tab PO DAILY 07/24/22 07/24/22 [Marah 0.25-0.035 mg Tablet] Allergies Allergy/AdvReac Type Severity Reaction Status Date / Time No Known Allergies Allergy Verified 07/24/22 15:27 Review of Systems ROS Statement: Those systems with pertinent positive or pertinent negative responses have been documented in the HPI. ROS Other: All systems not noted in ROS Statement are negative. Past Medical History Past Medical History: Sleep Apnea/CPAP/BIPAP Additional Past Medical History / Comment(s): alcohol syndrome, gestat ional diabetes-on insulin History of Any Multi-Drug Resistant Organisms: None Reported Past Surgical History: Hernia Repair (umbilical), Orthopedic Surgery (R. rotator cuff) Additional Past Surgical History / Comment(s): shoulder,hernia repair 08/2016 Past Anesthesia/Blood Transfusion Reactions: No Reported Reaction Past Psychological History: Anxiety, Bipolar, Depression Smoking Status: Current every day smoker Past Alcohol Use History: None Reported Past Drug Use History: None Reported - Past Family History Mother Family Medical History: No Reported History General Exam - General Exam Comments Initial Comments: GENERAL Patient is well-developed and well-nourished. Patient is in mild distress. EYES Patient's pupils are equal and round. Extraocular motion is intact SKIN Unremarkable NEURO The patient is alert and oriented 3 PYSCH Patient has normal interpersonal interactions. MUSCULOSKELETAL Patient has tenderness in the anterior lateral aspect of the shoulder however I don't feel any deficit like a dislocation Course Vital Signs 07/24/22 07/24/22 07/24/22 15:19 16:23 16:24 Temperature 97.3 F L Pulse Rate 72 78 72 Respiratory 18 18 18 Rate Blood Pressure 150/97 143/95 144/91 O2 Sat by Pulse 94 L 94 L 97 Oximetry 07/24/22 07/24/22 07/24/22 16:38 16:41 16:42 Temperature Pulse Rate 78 79 82 Respiratory 18 18 18 Rate Blood Pressure 155/88 150/87 152/87 O2 Sat by Pulse 97 97 98 Oximetry 07/24/22 07/24/22 07/24/22 16:48 16:57 17:00 Temperature Pulse Rate 78 60 68 Respiratory 18 18 18 Rate Blood Pressure 144/98 136/94 132/80 O2 Sat by Pulse 97 96 94 L Oximetry 07/24/22 17:10 Temperature Pulse Rate 76 Respiratory 18 Rate Blood Pressure 130/84 O2 Sat by Pulse 94 L Oximetry Procedures - Orthopedic Joint Reduction Joint #1 Consent Obtained: verbal consent Side: right Joint Reduction Location: shoulder Analgesia: procedural sedation Shoulder Technique Used (if applicable): traction/counter-traction Post-Reduction Neuro Exam: intact Post-Reduction Vascular Exam: intact Post Reduction X-Ray Obtained: Yes Post Reduction X-Ray Results: reduced Splint Applied: Yes Patient Tolerated Procedure: well - Procedural Sedation *Procedural Sedation Start Time: 16:35 *Procedural Sedation Stop Time: 17:00 *Indications: fracture/dislocation reduction *Previous Adverse Reaction to Anesthesia/Sedation?: No * Testing Complete?: No Reason Test Not Complete:: Emergent Situation *ASA Class: II *Mallampati Airway Score: 2 Preparation: classroom monitor applied, pulse oximeter, capnometry used, supplemental O2 applied IV Propofol Dose (mgs): 200 Complications: none Patient Tolerated Procedure: well Medical Decision Making - Medical Decision Making Was pt. sent in by a medical professional or institution (ELLEN Kan, RAILROAD CAR LOADER, urgent care, hospital, or detention...) When possible be specific @ -No Did you speak to anyone other than the patient for history (EMS, parent, family, police, friend...)? What history was obtained from this source @ -No Did you review nursing and triage notes (agree or disagree)? Why? @ -I reviewed and agree with nursing and triage notes Were old charts reviewed (outside hosp., previous admission, EMS record, old EKG, old radiological studies, urgent care reports/EKG's, detention records)? Report findings @ -No old charts were reviewed Differential Diagnosis (chest pain, altered mental status, abdominal pain women, abdominal pain men, vaginal bleeding, weakness, fever, dyspnea, syncope, headache, dizziness, GI bleed, back pain, seizure, CVA, palpatations, mental health, musculoskeletal)? @ -Differential Musculoskeletal Muscular strain, contusion, ligament sprain, fracture, arthritis, septic arthritis, bursitis, cellulitis, muscle spasm, nerve compression, DVT, arterial occlusion, herpes zoster, electrolyte abnormality, tumor.... This is not meant to be in all inclusive list EKG interpreted by me (3pts min.). @ -As above X-rays interpreted by me (1pt min.). @ -X-ray of the shoulder was interpreted by me shows a anterior dislocation of the right shoulder. Post reduction x-rays were also interpreted by me and shows good placement of the shoulder and no longer shows dislocation CT interpreted by me (1pt min.). @ -None done U/S interpreted by me (1pt. min.). @ -None done What testing was considered but not performed or refused? (CT, X-rays, U/S, labs)? Why? @ -None What meds were considered but not given or refused? Why? @ -None Did you discuss the management of the patient with other professionals (professionals i.e. , PA, RAILROAD CAR LOADER, lab, RT, psych nurse, director of social media marketing, abrading machine tender, teacher, protection officer, pillowcase cleaner)? Give summary @ -No Was smoking cessation discussed for >3mins.? @ -No Was critical care preformed (if so, how long)? @ -No Were there social determinants of health that impacted care today? How? (Homelessness, low income, unemployed, alcoholism, drug addiction, transportation, low edu. Level, literacy, decrease access to med. care, care home, rehab)? @ -No Was there de-escalation of care discussed even if they declined (Discuss DNR or withdrawal of care, Hospice)? DNR status @ -No What co-morbidities impacted this encounter? (DM, HTN, Smoking, COPD, CAD, Cancer, CVA, ARF, Chemo, Hep., AIDS, mental health diagnosis, sleep apnea, morbid obesity)? @ -None Was patient admitted / discharged? Hospital course, mention meds given and route, prescriptions, significant lab abnormalities, going to OR and other pertinent info. @ -Patient had an x-ray which showed a dislocation of the right shoulder. Patient underwent conscious sedation with reduction by myself the shoulder was back in its anatomical position. Propofol was used for the conscious sedation 200 mg were needed. See procedure note. Patient had an immobilizer sling placed and will follow-up with orthopedic. Undiagnosed new problem with uncertain prognosis? @ -No Drug Therapy requiring intensive monitoring for toxicity (Heparin, Nitro, Insulin, Cardizem)? @ -No Were any procedures done? @ -No Diagnosis/symptom? @ -Shoulder dislocation Acute, or Chronic, or Acute on Chronic? @ -Acute Uncomplicated (without systemic symptoms) or Complicated (systemic symptoms)? @ -Complicated Side effects of treatment? @ -No Exacerbation, Progression, or Severe Exacerbation? @ -No Poses a threat to life or bodily function? How? (Chest pain, [place], [place], pneumonia, PE, COPD, DKA, ARF, appy, cholecystitis, CVA, Diverticulitis, Homicidal, Suicidal, threat to staff... and all critical care pts) @ -No Disposition Clinical Impression: Dislocation of shoulder region Disposition: HOME SELF-CARE Condition: Good Instructions (If sedation given, give patient instructions): Shoulder Dislocation (ED) Is patient prescribed a controlled substance at d/c from ED?: No Referrals: Edin Cat MD [Primary Care Provider] - 1-2 days Néstor Ballesteros MD [STAFF PHYSICIAN] - 1-2 days Time of Disposition: 17:53
--- NOTE | 2022-07-24 15:59 | XR ---
EXAMINATION TYPE: XR shoulder complete RT DATE OF EXAM: 07/24/2022 COMPARISON: NONE HISTORY: Pain TECHNIQUE: Three views are submitted. FINDINGS: There is an anterior dislocation of the humeral head relative to the glenoid. Appears to be a defect involving the superior lateral margin of the humeral head. Findings suggestive of Hill-Sachs deformit y. IMPRESSION: 1. Anterior dislocation of the humeral head with suspicion of Hill-Sachs deformity.
[2022-07-24] MEDS: PROPOFOL 10 MG/ML 20 ML VIAL IV ONE ×3 (16:35→16:41)
--- NOTE | 2022-07-24 16:57 | XR ---
EXAMINATION TYPE: XR shoulder limited RT DATE OF EXAM: 07/24/2022 4:50 PM INDICATION: Patient age:Female; 31 years old; Reason for study: Postreduction; COMPARISON: 07/24/2022 TECHNIQUE: The right shoulder was examined in frontal FINDINGS: Anatomic alignment of the glenoid and humerus and a single projection film. Visualized lungs are karen sly unremarkable with low lung volumes. IMPRESSION: Post reduction of the right shoulder with out evidence of displaced fracture. Consider MRI for furthe r evaluation for internal derangement.
[2022-07-24] MEDS ORDERED: KETOROLAC 15 MG/ML 1 ML VIAL IVP STA (17:01)
[2022-07-24] MEDS ORDERED: HYDROmorphone 0.5 MG/0.5 ML SYRINGE IVP STA (17:01)
--- NOTE | 2022-07-24 17:25 | XR ---
EXAMINATION TYPE: XR shoulder complete RT DATE OF EXAM: 07/24/2022 5:16 PM INDICATION: Patient age:Female; 31 years old; Reason for study: Postreduction; COMPARISON: Same day TECHNIQUE: The right shoulder was examined in frontal and scapular Y FINDINGS: Anatomic alignment of the glenoid and humerus given this two projection radiograph. Visualized lungs are grossly unremarkable with low lung volumes. IMPRESSION: Post reduction of the right shoulder with out evidence of displaced fracture. Consider MRI for furthe r evaluation for internal derangement.
[2022-07-24 18:33] VITALS: BP 124/82; PULSE 69; TEMP 98.3
== END 2022-07-24 18:31 | disposition home or self-care (01) ==
LOC: EC 15:09
DX: S43.005A Unspecified dislocation of left shoulder joint, initial encounter (principal); G47.30 Sleep apnea, unspecified; F31.9 Bipolar disorder, unspecified; F41.9 Anxiety disorder, unspecified; F17.200 Nicotine dependence, unspecified, uncomplicated; Z79.899 Other long term (current) drug therapy; W18.30XA Fall on same level, unspecified, initial encounter
CPT/HCPCS: 73020; 73030; 99284; 96374; 96375 ×2; 23650; 99152; J1885; J2704; J1170

== ENCOUNTER 2023-01-15 10:55 | Emergency (ER) | payer OTHER ==
--- NOTE | 2023-01-15 11:23 | ED ---
Abdominal Pain HPI - General Source: patient, RN notes reviewed Mode of arrival: ambulatory Limitations: no limitations <Marvin Street - Last Filed: 01/15/23 11:22> - General Source: patient, RN notes reviewed <Owen Ferris - Last Filed: 01/15/23 14:54> - General Chief Complaint: Abdominal Pain Stated Complaint: Abd pain Time Seen by Provider: 01/15/23 11:22 - History of Present Illness Initial Comments: 32-year-old female presents emergency Department chief complaint of abdominal pain. Patient states her right upper quadrant. Patient states that she is unsure if food makes it feel better or worse. She states she's had episodes like this in the past but they resolve she's never been evaluated for this. (Marvin Street) Patient is a 32-year-old female presents emergency Department complaining of right upper quadrant abdominal pain. Has been on and off for the last few months. Seems to occur once every couple months for the last year. No other associated symptoms. Patient initially seen as a quick note. Symptoms currently are well-controlled and pain is nearly resolved. States started last night after eating macaroni and cheese. No previous abdominal surgeries. Denies any nausea or vomiting. Denies any chronic diarrhea or constipation. Has no urinary complaints. Denies any vaginal discharge or bleeding. No chest pain or shortness of breath. No fevers. No cough. No known sick contacts. Patient originally evaluated as a quick note. I evaluated the patient when she is placed in a hallway bed. Workup has already been started. She has no acute complaints at this time. States that her symptoms have largely improved and resolved at this point. (Owen Ferris) - Related Data Home Medications Medication Instructions Recorded Confirmed Ergocalciferol (Vitamin D2) 1,250 mcg PO SA 07/24/22 07/24/22 [Drisdol (50,000 Iu)] Escitalopram [Lexapro] 10 mg PO DAILY 07/24/22 07/24/22 norgestimate-ethinyl estradioL 1 tab PO DAILY 07/24/22 07/24/22 [Marah 0.25-0.035 mg Tablet] Previous Rx's Medication Instructions Recorded Famotidine [Pepcid] 20 mg PO DAILY 7 Days #7 tablet 01/15/23 Allergies Allergy/AdvReac Type Severity Reaction Status Date / Time bupropion [From Wellbutrin] Allergy Vomiting Verified 01/15/23 11:16 Review of Systems ROS Other: All systems not noted in ROS Statement are negative. <Marvin Street - Last Filed: 01/15/23 11:22> ROS Other: All systems not noted in ROS Statement are negative. <Owen Ferris - Last Filed: 01/15/23 14:54> ROS Statement: Those systems with pertinent positive or pertinent negative responses have been documented in the HPI. Review of Systems: CONST: Denies fever EYES: Denies blurry vision ENT: Denies nasal congestion C/V: Denies Chest pain RESP: Denies shortness of breath GI: Endorses right upper quadrant abdominal pain : Denies dysuria SKIN: Denies rash. MSK: Denies joint pain. NEURO: Denies headache (Owen Ferris) Past Medical History Past Medical History: Sleep Apnea/CPAP/BIPAP Additional Past Medical History / Comment(s): alcohol syndrome, gestational diabetes-on insulin History of Any Multi-Drug Resistant Organisms: None Reported Past Surgical History: Hernia Repair, Orthopedic Surgery Additional Past Surgical History / Comment(s): shoulder,hernia repair 08/2016 Past Anesthesia/Blood Transfusion Reactions: No Reported Reaction Past Psychological History: Anxiety, Bipolar, Depression Smoking Status: Current every day smoker Past Alcohol Use History: None Reported Past Drug Use History: None Reported - Past Family History Mother Family Medical History: No Reported History <Marvin Street - Last Filed: 01/15/23 11:22> General Exam Limitations: no limitations <Marvin Street - Last Filed: 01/15/23 11:22> <Owen Ferris - Last Filed: 01/15/23 14:54> - General Exam Comments Initial Comments: Visual Physical Exam Vital signs reviewed General: Well-appearing, nontoxic, no acute distress. Head: Normocephalic, atraumatic Eyes: PERRLA, EOMI ENT: Airway patent Chest: Nonlabored breathing Skin: No visual rash, normal skin tone Neuro: Alert and oriented 3 Musculoskeletal: No gross abnormalities (Marvin Street) General: Appears in no acute distress. HEAD: Normal with no signs of head trauma. EYES: PERRLA, EOMI, conjunctiva normal, no discharge. ENT: Hearing grossly intact, normal oropharynx. RESPIRATORY: Clear breath sounds bilaterally. No wheezes, rales, or rhonchi. C/V: Regular rate and rhythm. S1 and S2 auscultated, peripheral pulses 2+ and intact throughout ABD: Abd is soft, nontender, nondistended EXT: Normal range of motion, no obvious deformity SKIN: No rashes or lesions observed on exposed skin. NEURO: Alert and oriented 4. (Owen Ferris) Course Vital Signs 01/15/23 01/15/23 11:12 14:14 Temperature 98.5 F 98.6 F Pulse Rate 71 62 Respiratory 16 18 Rate Blood Pressure 107/70 102/66 O2 Sat by Pulse 95 99 Oximetry Medical Decision Making <Marvin Street - Last Filed: 01/15/23 11:22> - Lab Data Result diagrams: 01/15/23 12:04 01/15/23 12:04 <Owen Ferris - Last Filed: 01/15/23 14:54> - Medical Decision Making I performed a quick note portion of discharged signed Marvin Street PA-C (Marvin Street) Was pt. sent in by a medical professional or institution ([facility], PAN WASHER, urgent care, hospital, or care home...) When possible be specific @ -No Did you speak to anyone other than the patient for history (EMS, parent, family, police, friend...)? What history was obtained from this source @ -No Did you review nursing and triage notes (agree or disagree)? Why? @ -I reviewed and agree with nursing and triage notes Were old charts reviewed (outside hosp., previous admission, EMS record, old EKG, old radiological studies, urgent care reports/EKG's, care home records)? Report findings @ -No old charts were reviewed Differential Diagnosis (chest pain, altered mental status, abdominal pain women, abdominal pain men, vaginal bleeding, weakness, fever, dyspnea, syncope, headache, dizziness, GI bleed, back pain, seizure, CVA, palpatations, mental health, musculoskeletal)? @ -Differential Abdominal Pain Women: Appendicitis, Cholecystitis, diverticulosis, ischemic bowel, pancreatitis, hepatitis, UTI, gastroenteritis, AAA, incarcerated hernia, bowel obstruction, constipation, inflammatory bowel, hepatitis, peptic ulcer disease, splenic infarction, perforated viscus, vulvitis, ovarian torsion, PID, kidney stone, placenta abruption, this is not meant to be an all-inclusive list EKG interpreted by me (3pts min.). @ -None done X-rays interpreted by me (1pt min.). @ -None done CT interpreted by me (1pt min.). @ -None done U/S interpreted by me (1pt. min.). @ -Gallbladder ultrasound reveals no obvious evidence of cholecystitis or gall stone. What testing was considered but not performed or refused? (CT, X-rays, U/S, labs)? Why? @ -None What meds were considered but not given or refused? Why? @ -None Did you discuss the management of the patient with other professionals (professionals i.e. , PA, PAN WASHER, lab, RT, psych nurse, social insurance administrator, golf starter and ranger, teacher, anti air warfare operations officer, heel caser)? Give summary @ -No Was smoking cessation discussed for >3mins.? @ -No Was critical care preformed (if so, how long)? @ -No Were there social determinants of health that impacted care today? How? (Homelessness, low income, unemployed, alcoholism, drug addiction, roblero sportation, low edu. Level, literacy, decrease access to med. care, custodial, rehab)? @ -No Was there de-escalation of care discussed even if they declined (Discuss DNR or withdrawal of care, Hospice)? DNR status @ -No What co-morbidities impacted this encounter? (DM, HTN, Smoking, COPD, CAD, Cancer, CVA, ARF, Chemo, Hep., AIDS, mental health diagnosis, sleep apnea, morbid obesity)? @ -None Was patient admitted / discharged? Hospital course, mention meds given and route, prescriptions, significant lab abnormalities, going to OR and other pertinent info. @ -Based on the patient's presentation and physical exam, presents complaining of right upper quadrant abdominal pain. This started as a quick note. Vital signs within acceptable limits. Symptoms have largely resolved by the time I evaluated the patient. She was given a dose of Tylenol. Labs remarkable for slight elevation in lipase as well as slight elevation in LFTs with normal alk phos and normal bilirubin. Right upper quadrant ultrasound reveals no clear evidence of cholecystitis or gallstones. Vital signs within acceptable limits. I discussed results with the patient. She is relatively asymptomatic at this time. We did discuss it is possible she is having some biliary colic, however she is asymptomatic and labs are unremarkable, I believe it is safe for her to be discharged home. She was in agreement with this plan. Strict return precautions discussed. She'll return if things worsen. I will provide the patient with a prescription for famotidine. I instructed the patient to follow up with their PCP in the next 1-3 days. I provided contact information for follow up with GI. I explained that the patient should return to the emergency department if they experience any worsening symptoms. Strict return precautions were discussed with the patient. The patient expressed understanding of these instructions. I answered all questions that the patient had. The patient was discharged home in good condition with their prescriptions and follow up information. Undiagnosed new problem with uncertain prognosis? @ -No Drug Therapy requiring intensive monitoring for toxicity (Heparin, Nitro, Insulin, Cardizem)? @ -No Were any procedures done? @ -No Diagnosis/symptom? @ -Abdominal pain of unknown etiology, suspect biliary colic Acute, or Chronic, or Acute on Chronic? @ -Acute Uncomplicated (without systemic symptoms) or Complicated (systemic symptoms)? @ -Uncomplicated Side effects of treatment? @ -No Exacerbation, Progression, or Severe Exacerbation? @ -No Poses a threat to life or bodily function? How? (Chest pain, [place], [place], pneumonia, PE, COPD, DKA, ARF, appy, cholecystitis, CVA, Diverticulitis, Homicidal, Suicidal, threat to staff... and all critical care pts) @ -No (Owen Ferris) - Lab Data Lab Results 01/15/23 01/15/23 01/15/23 Range/Units 12:04 12:04 12:44 WBC 7.5 (3.8-10.6) k/uL RBC 5.02 (3.80-5.40) m/uL Hgb 14.5 (11.4-16.0) gm/dL Hct 42.5 (34.0-46.0) % MCV 84.5 (80.0-100.0) fL MCH 28.8 (25.0-35.0) pg MCHC 34.1 (31.0-37.0) g/dL RDW 15.6 H (11.5-15.5) % Plt Count 209 (150-450) k/uL MPV 7.8 Neutrophils % 70 % Lymphocytes % 21 % Monocytes % 4 % Eosinophils % 4 % Basophils % 0 % Neutrophils # 5.3 (1.3-7.7) k/uL Lymphocytes # 1.6 (1.0-4.8) k/uL Monocytes # 0.3 (0-1.0) k/uL Eosinophils # 0.3 (0-0.7) k/uL Basophils # 0.0 (0-0.2) k/uL Sodium 139 (137-145) mmol/L Potassium 4.8 (3.5-5.1) mmol/L Chloride 106 (98-107) mmol/L Carbon Dioxide 24 (22-30) mmol/L Anion Gap 9 mmol/L BUN 15 (7-17) mg/dL Creatinine 0.84 (0.52-1.04) mg/dL Est GFR (CKD-EPI)AfAm >90 (>60 ml/min/1.73 sqM) Est GFR (CKD-EPI)NonAf >90 (>60 ml/min/1.73 sqM) Glucose 96 (74-99) mg/dL Calcium 9.3 (8.4-10.2) mg/dL Total Bilirubin 0.9 (0.2-1.3) mg/dL AST 63 H (14-36) U/L ALT 111 H (4-34) U/L Alkaline Phosphatase 51 (38-126) U/L Total Protein 6.8 (6.3-8.2) g/dL Albumin 4.1 (3.5-5.0) g/dL Lipase 369 H (23-300) U/L Urine Color Light Yellow Urine Appearance Clear (Clear) Urine pH 6.5 (5.0-8.0) Ur Specific [place] 1.020 (1.001-1.035) Urine Protein 2+ H (Negative) Urine Glucose (UA) Negative (Negative) Urine Ketones Negative (Negative) Urine Blood Negative (Negative) Urine Nitrite Negative (Negative) Urine Bilirubin Negative (Negative) Urine Urobilinogen <2.0 (<2.0) mg/dL Ur Leukocyte Esterase Negative (Negative) Urine RBC 2 (0-5) /hpf Urine WBC 1 (0-5) /hpf Ur Squamous Epith Cells 4 (0-4) /hpf Urine Mucus Rare H (None) /hpf Urine HCG, Qual (Not Detectd) 01/15/23 Range/Units 12:44 WBC (3.8-10.6) k/uL RBC (3.80-5.40) m/uL Hgb (11.4-16.0) gm/dL Hct (34.0-46.0) % MCV (80.0-100.0) fL MCH (25.0-35.0) pg MCHC (31.0-37.0) g/dL RDW (11.5-15.5) % Plt Count (150-450) k/uL MPV Neutrophils % % Lymphocytes % % Monocytes % % Eosinophils % % Basophils % % Neutrophils # (1.3-7.7) k/uL Lymphocytes # (1.0-4.8) k/uL Monocytes # (0-1.0) k/uL Eosinophils # (0-0.7) k/uL Basophils # (0-0.2) k/uL Sodium (137-145) mmol/L Potassium (3.5-5.1) mmol/L Chloride (98-107) mmol/L Carbon Dioxide (22-30) mmol/L Anion Gap mmol/L BUN (7-17) mg/dL Creatinine (0.52-1.04) mg/dL Est GFR (CKD-EPI)AfAm (>60 ml/min/1.73 sqM) Est GFR (CKD-EPI)NonAf (>60 ml/min/1.73 sqM) Glucose (74-99) mg/dL Calcium (8.4-10.2) mg/dL Total Bilirubin (0.2-1.3) mg/dL AST (14-36) U/L ALT (4-34) U/L Alkaline Phosphatase (38-126) U/L Total Protein (6.3-8.2) g/dL Albumin (3.5-5.0) g/dL Lipase (23-300) U/L Urine Color Urine Appearance (Clear) Urine pH (5.0-8.0) Ur Specific [place] (1.001-1.035) Urine Protein (Negative) Urine Glucose (UA) (Negative) Urine Ketones (Negative) Urine Blood (Negative) Urine Nitrite (Negative) Urine Bilirubin (Negative) Urine Urobilinogen (<2.0) mg/dL Ur Leukocyte Esterase (Negative) Urine RBC (0-5) /hpf Urine WBC (0-5) /hpf Ur Squamous Epith Cells (0-4) /hpf Urine Mucus (None) /hpf Urine HCG, Qual Not Detected (Not Detectd) Disposition <Marvin Street - Last Filed: 01/15/23 11:22> Is patient prescribed a controlled substance at d/c from ED?: No Time of Disposition: 13:44 <Owen Ferris - Last Filed: 01/15/23 14:54> Clinical Impression: Abdominal pain of unknown etiology Disposition: HOME SELF-CARE Condition: Good Instructions (If sedation given, give patient instructions): Abdominal Pain (ED) Prescriptions: Famotidine [Pepcid] 20 mg PO DAILY 7 Days #7 tablet Referrals: Edin Cat MD [Primary Care Provider] - 1-2 days Vida Morris MD [STAFF PHYSICIAN] - 1-2 days
[2023-01-15 12:09] LABS: Basophils % (A) 0 %; Eosinophils # (A) 0.3 k/uL (0-0.7); Eosinophils % (A) 4 %; HCT 42.5 % (34.0-46.0); HGB 14.5 gm/dL (11.4-16.0); Lymphocytes # (A) 1.6 k/uL (1.0-4.8); Lymphocytes % (A) 21 %; MCH 28.8 pg (25.0-35.0); MCHC 34.1 g/dL (31.0-37.0); MCV 84.5 fL (80.0-100.0); Mean Platelet Volume 7.8; Monocytes # (A) 0.3 k/uL (0-1.0); Monocytes % (A) 4 %; Neutrophils # (A) 5.3 k/uL (1.3-7.7); Neutrophils % (A) 70 %; Platelet Count 209 k/uL (150-450); RBC 5.02 m/uL (3.80-5.40); RDW 15.6 % (11.5-15.5); WBC 7.5 k/uL (3.8-10.6)
[2023-01-15 12:24] LABS: ALT 111 U/L (4-34); AST 63 U/L (14-36); African American GFR (CKD) >90 (>60 ml/min/1.73 sqM); Albumin 4.1 g/dL (3.5-5.0); Alkaline Phosphatase 51 U/L (38-126); Anion Gap 9 mmol/L; Blood Urea Nitrogen 15 mg/dL (7-17); Calcium 9.3 mg/dL (8.4-10.2); Carbon Dioxide 24 mmol/L (22-30); Chloride 106 mmol/L (98-107); Glucose 96 mg/dL (74-99); Lipase 369 U/L (23-300); Non-African American GFR(CKD) >90 (>60 ml/min/1.73 sqM); Potassium 4.8 mmol/L (3.5-5.1); Sodium 139 mmol/L (137-145); Total Bilirubin 0.9 mg/dL (0.2-1.3); Total Protein 6.8 g/dL (6.3-8.2)
--- NOTE | 2023-01-15 13:26 | US ---
EXAMINATION TYPE: US gallbladder DATE OF EXAM: 01/15/2023 COMPARISON: NONE CLINICAL INDICATION: Female, 32 years old with history of pain; Rt sided abdominal pain since 9pm las t night, seems to be subsiding TECHNIQUE: Multiple sonographic images of the right upper quadrant are obtained. FINDINGS: EXAM MEASUREMENTS: Liver Length: 21.4 cm Gallbladder Wall: 0.2 cm CBD: 0.3 cm Right Kidney: 11.6x4.1x5.1 cm AUDITING CLERK NOTES: Pancreas: Tail obscured by overlying bowel gas Liver: enlarged and echogenic with increased attenuation Gallbladder: wnl Evidence for sonographic Ballesteros's sign: No CBD: wnl Right Kidney: wnl exam slightly limited by attenuation, body habitus, and bowel IMPRESSION: 1. Hepatomegaly correlate for hepatocellular disease or hepatic steatosis. 2. No diagnostic evidence of gallstones.
[2023-01-15 13:29] LABS: Appearance,Urine Clear (Clear); Bilirubin,Urine Negative (Negative); Blood,Urine Negative (Negative); Color,Urine Light Yellow; Glucose,Urine (UA) Negative (Negative); Ketones,Urine Negative (Negative); Leukocyte Esterase,Urine Negative (Negative); Mucus,Urine Rare /hpf; Nitrite,Urine Negative (Negative); PH, Urine 6.5 (5.0-8.0); Protein,Urine 2+ (Negative); RBC,Urine 2 /hpf (0-5); Squamous Epithelial Cell,Urine 4 /hpf (0-4); Urobilinogen,Urine <2.0 mg/dL (<2.0); WBC,Urine 1 /hpf (0-5)
[2023-01-15] MEDS ORDERED: ACETAMINOPHEN TAB 500 MG TAB PO STA (13:37)
[2023-01-15 14:16] VITALS: BP 102/66; PULSE 62; RESP 18; TEMP 98.6
== END 2023-01-15 14:14 | disposition home or self-care (01) ==
LOC: EC 10:55
DX: K76.0 Fatty (change of) liver, not elsewhere classified (principal); G47.30 Sleep apnea, unspecified; F41.9 Anxiety disorder, unspecified; F31.9 Bipolar disorder, unspecified; F17.200 Nicotine dependence, unspecified, uncomplicated; Z79.899 Other long term (current) drug therapy; Z88.8 Allergy status to other drugs, medicaments and biological substances
CPT/HCPCS: 36415; 76705; 80053; 81001; 81025; 83690; 85025; 99284